=== PATIENT | male | born 1950 | race Caucasian/White ===

== ENCOUNTER 2018-01-19 15:52 | Inpatient (IN) ==
[2018-01-19] MEDS ORDERED: Nitroglycerin 0.4 MG TAB.SUBL SL ONE (16:03)
[2018-01-19] MEDS ORDERED: Ondansetron 4 MG/2 ML VIAL IVP ONE (16:03)
[2018-01-19] MEDS ORDERED: 0.9 % Sodium Chloride 500 ML IVC ONE (16:03)
--- NOTE | 2018-01-19 16:06 | Emergency Department Note ---
Disposition Clinical Impression: Unstable angina, Smoking addiction Emphysema lung Qualifiers: Emphysema type: unspecified Qualified Code(s): J43.9 - Emphysema, unspecified Leukocytosis Qualifiers: Leukocytosis type: unspecified Qualified Code(s): D72.829 - Elevated white blood cell count, unspecified Disposition: Admitted As Inpatient Condition: Good Forms: ED Satisfaction Letter Time of Disposition: 17:54 Chest Pain HPI - General Chief Complaint: ED Chest Pain Stated Complaint: chest pain Time Seen by Provider: 01/19/18 15:54 Source: patient Mode of arrival: ambulatory Limitations: no limitations Vital Signs Reviewed: Yes Nursing Notes Reviewed: Yes - History of Present Illness HPI Narrative: 67-year-old male presents emergency room for chest pain. Started 2 hours ago home while working on a tractor. Pain was substernal radiated to his back. Thought extremely weak and short of breath. His pain has persisted. He rates it as a 3 out of 10. Seems to be worse more in his back than in his chest. Associated with nausea and near vomiting. He does have a history of one stent that was placed a few years back. He said no cardiac evaluations as far as stress test or heart catheterization since then. He has a known smoker and smokes a roughly 1 pack per day. Patient states he does not feel well and feels extremely weak. He denies any cough or sputum production. No fevers. No lower leg swelling. Symptoms seem to be worse with activity. He did not take any nitroglycerin today or aspirin. Severity scale (1-10): 3 - Related Data Allergies Allergy/AdvReac Type Severity Reaction Status Date / Time No Known Allergies Allergy Verified 09/19/17 12:56 All systems ED: reviewed and negative except as stated. Constitutional: Reports: as per HPI, weakness. Denies: fever Eyes: Reports: as per HPI ENT ED: Reports: as per HPI Cardiovascular: Reports: chest pain Respiratory: Reports: as per HPI Gastrointestinal: Reports: as per HPI, nausea, vomiting. Denies: diarrhea Genitourinary: Reports: as per HPI Musculoskeletal: Reports: as per HPI, back pain Integumentary: Reports: as per HPI Neurological: Reports: as per HPI Psychiatric: Reports: as per HPI Endocrine: Reports: as per HPI Hematological/Lymphatic: Reports: as per HPI Chest Pain PMH - Past Medical History Medical history: Reports: coronary artery disease, hyperlipidemia, myocardial infarction Psychiatric history: Reports: no psych history - Social History Smoking Status: Current every day smoker Alcohol use: Reports: none Drug use: Reports: none Physical Exam - General Limitations: no limitations General appearance: alert - Head Head exam: atraumatic, normocephalic - Eye Eye exam: Present: normal appearance - ENT ENT exam: normal exam - Neck Neck exam: Present: normal inspection - Chest Chest inspection: Present: normal inspection, symmetric chest wall rise. Absent : tenderness - Respiratory Respiratory exam: Present: normal lung sounds bilaterally. Absent: respiratory distress, wheezes, stridor - Cardiovascular Cardiovascular exam: Present: normal rhythm, tachycardia - Abdominal Exam Abdominal exam: Present: soft, Non-Tender, normal bowel sounds - Extremities Exam Extremities exam: Present: normal inspection. Absent: tenderness, pedal edema, joint swelling - Expanded Lower Extremity Exam Hip/Pelvis exam: Present: normal inspection - Neurological Exam Neurological exam: Present: alert, oriented X3 - Psychiatric Psychiatric exam: Present: normal affect, normal mood - Skin Skin exam: Present: warm, dry, intact Course Vital Signs Temperature 99.3 F 01/19/18 15:57 Pulse Rate 103 01/19/18 15:57 Respiratory Rate 14 01/19/18 15:57 Blood Pressure 128/84 01/19/18 15:57 O2 Sat by Pulse Oximetry 95 01/19/18 15:57 Temperature 99.3 F 01/19/18 15:57 Pulse Rate 88 01/19/18 17:52 Respiratory Rate 16 01/19/18 17:52 Blood Pressure 113/66 01/19/18 17:52 O2 Sat by Pulse Oximetry 94 01/19/18 17:52 Oxygen Delivery Oxygen Delivery Room Air Chest Pain - MDM Narrative Medical decision making narrative: First troponin was negative. He is chest pain-free now. I have ordered aspirin after his CT scan did not show any evidence of PE or dissection. His vitals are stable. I did give him a liter of fluid after his 500 mL bolus. He will have gotten a total of 1.5 L in the ER. I spoke with the hospitalist. We will admit for ACS evaluation. He does have a nonspecific white count elevation. - Medical Records Medical records reviewed: Yes I reviewed the patient's medical records. - Lab Data Lab results reviewed: Yes I reviewed the patient's lab results. Result diagrams: 01/19/18 16:13 01/19/18 16:13 Lab Results 01/19/18 01/19/18 01/19/18 Range/Units 16:13 16:13 16:13 WBC 18.6 H (4.3-11.1) K/mcL RBC 4.62 (4.19-5.50) M/mcL Hgb 14.2 (12.9-16.9) g/dL Hct 40.4 (37.5-50.1) % MCV 87.4 (83.0-100.0) fL MCH 30.7 (28.0-33.3) pg MCHC 35.1 (31.6-35.5) g/dL RDW 13.6 (11.5-14.5) % Plt Count 252 (140-400) K/mcL MPV 9.4 (9.4-12.4) fL Immature Gran % 0.7 (0-4) % Seg Neutrophils % 84.7 % Lymphocytes % 7.2 % Monocytes % 6.7 % Eosinophils % 0.3 % Basophils % 0.4 % Neutrophils # 15.8 H (1.6-8.9) K/mcL Lymphocytes # 1.3 (0.6-4.6) K/mcL Monocytes # 1.2 (0.0-1.3) K/mcL Eosinophils # 0.1 (0.0-0.6) K/mcL Basophils # 0.1 (0.0-0.2) K/mcL PT 11.5 (9.4-12.1) Seconds INR 1.1 APTT 32.6 (26.0-36.0) Seconds D-Dimer 856 H (0-500) ng/mLFEU Sodium 137 (136-145) mEq/L Potassium 3.3 L (3.5-5.1) mEq/L Chloride 106 (98-107) mEq/L Carbon Dioxide 21 L (23-29) mEq/L BUN 16 (8-23) mg/dL Creatinine 0.91 (0.70-1.30) mg/dL Est GFR ( Amer) > 60 (> 60) Est GFR (Non-Af Amer) > 60 (> 60) BUN/Creatinine Ratio 18 (6-26) Glucose 105 (70-105) mg/dL Calculated Osmolality 286 (280-300) Calcium 9.5 (8.6-10.3) mg/dL Troponin I < 0.03 (< 0.04) ng/mL - Radiology Data Radiology results reviewed: Yes I reviewed the patient's radiology results. - EKG Data EKG attestation: Yes I reviewed and interpreted this EKG. EKG results narrative: EKG shows a rate of 114. Sinus tachycardia. Right axis deviation. IL interval 136. QRS 82. QTC 374. No acute findings of any ischemia. Heart Score - Score History: Moderately Suspicious EKG: Normal Age: Greater than 65 Risk Factors: 1-2 risk factors Troponin: Less than normal limit HEART Score Total: 4
[2018-01-19 16:25] LABS: Basophils # 0.1 K/mcL (0.0-0.2); Basophils % 0.4 %; Eosinophils # 0.1 K/mcL (0.0-0.6); Eosinophils % 0.3 %; Hematocrit 40.4 % (37.5-50.1); Hemoglobin 14.2 g/dL (12.9-16.9); Immature Granulocytes % 0.7 % (0-4); Lymphocytes # 1.3 K/mcL (0.6-4.6); Lymphocytes % 7.2 %; Mean Corpuscular HGB Conc 35.1 g/dL (31.6-35.5); Mean Corpuscular Hemoglobin 30.7 pg (28.0-33.3); Mean Corpuscular Volume 87.4 fL (83.0-100.0); Mean Platelet Volume 9.4 fL (9.4-12.4); Monocytes # 1.2 K/mcL (0.0-1.3); Monocytes % 6.7 %; Neutrophils # 15.8 K/mcL (1.6-8.9); Platelet Count 252 K/mcL (140-400); Red Blood Count 4.62 M/mcL (4.19-5.50); Red Cell Distribution Width 13.6 % (11.5-14.5); Segmented Neutrophils % 84.7 %
[2018-01-19 16:35] LABS: INR 1.1; Prothrombin Time 11.5 Seconds (9.4-12.1)
[2018-01-19 16:37] LABS: Activated Partial Thrombo Time 32.6 Seconds (26.0-36.0)
[2018-01-19] MEDS ORDERED: Isovue-370 500 ML INFUS..BTL IV ONE (16:48)
[2018-01-19 16:53] LABS: BUN/Creatinine Ratio 18 (6-26); Blood Urea Nitrogen 16 mg/dL (8-23); Calcium 9.5 mg/dL (8.6-10.3); Carbon Dioxide 21 mEq/L (23-29); Chloride 106 mEq/L (98-107); Glucose 105 mg/dL (70-105); Osmolality,Calculated 286 (280-300); Potassium 3.3 mEq/L (3.5-5.1); Sodium 137 mEq/L (136-145); eGFR For African Americans > 60 (> 60); eGFR For Non-African Americans > 60 (> 60)
[2018-01-19 16:54] LABS: Troponin I < 0.03 ng/mL (< 0.04)
[2018-01-19] MEDS ORDERED: 0.9 % Sodium Chloride 1,000 ML IVC ONE (17:47)
[2018-01-19] MEDS ORDERED: Aspirin 325 MG TABLET PO ONE (17:47)
[2018-01-19] MEDS ORDERED: Ondansetron 4 MG/2 ML VIAL IVP PRN (18:07)
[2018-01-19] MEDS ORDERED: *HR* Promethazine 25 MG/ML VIAL IVP PRN (18:07)
[2018-01-19] MEDS ORDERED: Acetaminophen 325 MG TABLET PO PRN (18:07)
[2018-01-19] MEDS ORDERED: Naloxone 0.4 MG/ML INJ IVP PRN (18:07)
[2018-01-19] MEDS ORDERED: Nitroglycerin 0.4 MG TAB.SUBL SL PRN (18:09)
--- NOTE | 2018-01-19 18:36 | Internal Med History&Physical ---
Date of Encounter: 01/19/18 Time of Encounter: 18:32 Internal Medicine - H&P: HPI Chief complaint: Generalized body aches Admitted From: Emergency Dept Plans for Post Hospital Care: Home History of present illness: Mr. Smith is a 67 year old male with a known past medical history of CAD status post a stent 2 years ago, and chronic tobacco dependence was brought into the emergency room by family stating that patient has been complaining lightheadedness, dizziness near syncopal and feeling heart when he was working on the tractor couple of hours ago. Apparently patient has been feeling weak and lethargic from last 5 days and he was working under the sun doing a lot of mowing. He does look dehydrated with dry mucous membranes. He is alert, awake and O x 3. Denied any chest pain. He does complain generalized body aches and back pain especially between both shoulder blades. He is very weak and lethargic. Also complained about loss of appetite. He is feeling nauseated but denied any vomitings. Past Med Surg Social Fam HX - Past Medical History Medical history: coronary artery disease, hyperlipidemia, myocardial infarction Psychiatric history: no psych history - Past Surgical History Additional surgical history: cardiac stent x1. bilat inguinal hernia - Social History Smoking Status: Current every day smoker Smokeless Tobacco Status: No Alcohol use: none Drug use: none - Additional Family History Additional family history: Family hsitory reviewed and non contribuitory to current problem. Internal Medicine - H&P: Meds Atorvastatin Calcium 80 mg PO HS 01/19/18 [History] 3 Allergy/AdvReac Type Severity Reaction Status Date / Time No Known Allergies Allergy Verified 01/19/18 18:01 All Systems PM: A 10-system review of systems was performed and is negative for pertinent findings except as documented above in the HPI. Review of systems: All the systems are reviewed everything is benign except the systems and symptoms I mentioned in the history of present illness - Constitutional Vitals: Temp Pulse Resp BP Pulse Ox 99.3 F 88 16 113/66 94 01/19/18 15:57 01/19/18 17:52 01/19/18 17:52 01/19/18 17:52 01/19/18 17:52 General appearance: Present: cooperative, A&O X 3, no acute distress, answers questions appropriately - Head Head exam: Present: atraumatic, normal inspection - Neck Neck exam general surgery: Present: supple - Respiratory Respiratory exam: Present: CTAB. Absent: accessory muscle use, rales, rhonchi, wheezes - Cardiovascular Cardiovascular exam: Present: +S1, +S2, tachycardia. Absent: systolic murmur - GI/Abdominal GI/Abdominal exam: Present: normal bowel sounds, soft. Absent: rebound, rigid, tenderness - Extremities Exam Extremities exam: Absent: calf tenderness, pedal edema, tenderness - Back Exam Back exam: Absent: CVA tenderness (L), CVA tenderness (R) - Neurological Exam Neurological exam: Present: alert, oriented X3 - Psychiatric Psychiatric exam: Present: anxious, depressed - Skin Skin exam: Present: dry. Absent: rash Internal Med - H&P Results - Labs CBC & Chem 7: 01/19/18 16:13 01/19/18 16:13 Labs: Short CBC 01/19/18 Range/Units 16:13 WBC 18.6 H (4.3-11.1) K/mcL Hgb 14.2 (12.9-16.9) g/dL Hct 40.4 (37.5-50.1) % Plt Count 252 (140-400) K/mcL Neutrophils # 15.8 H (1.6-8.9) K/mcL BMP 01/19/18 16:13 Sodium 137 Potassium 3.3 L Chloride 106 Carbon Dioxide 21 L BUN 16 Creatinine 0.91 Glucose 105 Calcium 9.5 Cardiac Enzymes 01/19/18 Range/Units 16:13 Troponin I < 0.03 (< 0.04) ng/mL - Impressions ITS Impressions Chest X-Ray 01/19/18 16:03 IMPRESSION: No acute cardiac or pulmonary disease. D/ / Zac Rasheed MD / Zac Rasheed MD Interpreting Provider: Zac Rasheed MD Chest CTA 01/19/18 16:48 IMPRESSION: No evidence of pulmonary embolism or acute pulmonary abnormality. Moderate to severe emphysema. Tiny amount of mucus or debris in the left mainstem bronchus. D/ / 01/19/2018 17:44:48 Trell Quesada MD / orin Interpreting Provider: Trell Quesada MD - Assessment and plan (1) Heatstroke Current Visit: Yes Status: Acute Assessment and plan: Place the patient on tele for observation his symptoms are more consistent with heatstroke he does look very dehydrated started him on IV hydration will check UA Also ordered CK total - concerning for rhabdo talk to the patient's family at bedside and explained to them about the current care Qualifiers: Encounter type: initial encounter Qualified Code(s): T67.0XXA - Heatstroke and sunstroke, initial encounter (2) SIRS (systemic inflammatory response syndrome) Current Visit: Yes Status: Acute Assessment and plan: Patient does meet SIRS criteria with elevated white count and sinus tachycardia mostly due to heatstroke IV hydration (3) Near syncope Current Visit: Yes Status: Acute Assessment and plan: On tele Reviewed EKG- no acute EKG changes patient denied of any passing out will get a CT of the head with no contrast check serial troponin (4) Dehydration Current Visit: Yes Status: Acute Assessment and plan: IV hydration (5) Tobacco dependence Current Visit: Yes Status: Acute Assessment and plan: Counseled to quit smoking placed on nicotine patch (6) Leukocytosis Current Visit: Yes Status: Acute Assessment and plan: Reactive no source of infection UA is pending Qualifiers: Leukocytosis type: unspecified Qualified Code(s): D72.829 - Elevated white blood cell count, unspecified (7) HLD (hyperlipidemia) Current Visit: Yes Status: Acute Qualifiers: Hyperlipidemia type: unspecified Qualified Code(s): E78.5 - Hyperlipidemia , unspecified (8) CAD (coronary artery disease) Current Visit: Yes Status: Chronic Qualifiers: Coronary Disease-Associated Artery/Lesion type: [place] artery [place] vs. transplanted heart: [place] heart Associated angina: without angina Qualified Code(s): I25.10 - Atherosclerotic heart disease of [place] coronary artery without angina pectoris - Time Spent With Patient Total time spent is greater than 50% in coordination of care (as documented) at patient's floor/unit and/or counseling patient:
[2018-01-19] MEDS: 0.9 % Sodium Chloride 1,000 ML IVC SCH (20:43)
[2018-01-20 04:07] LABS: Bilirubin,Urine Negative (Negative); Blood,Urine Negative (Negative); Clarity,Urine Clear (Clear); Color,Urine Yellow (Yellow); Glucose,Urine (UA) Normal (Normal); Ketones,Urine Trace mg/dL (Negative); Leukocyte Esterase,Urine Trace (Negative); Nitrite,Urine Negative (Negative); PH,Urine 6.5 pH Units (5.0-8.0); Protein,Urine Trace mg/dL (Neg-Trace); Specific Gravity,Urine 1.025 (1.010-1.025); Urobilinogen,Urine Normal (Normal)
[2018-01-20 04:31] LABS: Hyaline Casts,Urine None Seen per lpf (None-Few); Squamous Epithelial Cell,Urine Few per lpf (None-Few)
[2018-01-20 04:32] LABS: Bacteria,Urine None Seen per hpf (None-Few); RBC,Urine 0-3 per hpf (0-3); WBC,Urine 15-30 per hpf (0-3)
[2018-01-20 05:32] LABS: Basophils % 0.4 %; Eosinophils % 0.1 %; Mean Platelet Volume 9.7 fL (9.4-12.4)
[2018-01-20 05:34] LABS: Basophils # 0.1 K/mcL (0.0-0.2); Hematocrit 38.2 % (37.5-50.1); Hemoglobin 13.3 g/dL (12.9-16.9); Immature Granulocytes % 1.5 % (0-4); Lymphocytes # 2.4 K/mcL (0.6-4.6); Lymphocytes % 8.2 %; Mean Corpuscular HGB Conc 34.8 g/dL (31.6-35.5); Mean Corpuscular Hemoglobin 30.6 pg (28.0-33.3); Mean Corpuscular Volume 87.8 fL (83.0-100.0); Monocytes # 2.1 K/mcL (0.0-1.3); Monocytes % 7.3 %; Neutrophils # 24.1 K/mcL (1.6-8.9); Platelet Count 236 K/mcL (140-400); Red Blood Count 4.35 M/mcL (4.19-5.50); Red Cell Distribution Width 13.9 % (11.5-14.5); Segmented Neutrophils % 82.5 %
[2018-01-20 05:50] LABS: Troponin I 0.03 ng/mL (< 0.04)
[2018-01-20 05:55] LABS: Alanine Aminotransferase 21 Units/L (7-52); Albumin 3.6 g/dL (3.5-5.7); Albumin/Globulin Ratio 1.5 (1.1-2.2); Alkaline Phosphatase 62 Units/L (34-104); Aspartate Amino Transferase 26 Units/L (13-39); BUN/Creatinine Ratio 18 (6-26); Bilirubin,Total 1.3 mg/dL (0.3-1.0); Blood Urea Nitrogen 16 mg/dL (8-23); Calcium 8.2 mg/dL (8.6-10.3); Carbon Dioxide 20 mEq/L (23-29); Chloride 110 mEq/L (98-107); Globulin 2.4 g/dL (2.4-3.5); Glucose 105 mg/dL (70-105); Osmolality,Calculated 286 (280-300); Potassium 3.8 mEq/L (3.5-5.1); Sodium 137 mEq/L (136-145); eGFR For African Americans > 60 (> 60); eGFR For Non-African Americans > 60 (> 60)
[2018-01-20 05:59] LABS: BUN/Creatinine Ratio 18 (6-26); Blood Urea Nitrogen 16 mg/dL (8-23); Calcium 8.3 mg/dL (8.6-10.3); Carbon Dioxide 20 mEq/L (23-29); Chloride 110 mEq/L (98-107); Cholesterol 121 mg/dL (< 200); Glucose 104 mg/dL (70-105); HDL Cholesterol 41 mg/dL (40-59); LDL Cholesterol,Calculated 68 mg/dL (0-99); Magnesium 1.8 mg/dL (1.6-2.6); Osmolality,Calculated 285 (280-300); Potassium 3.8 mEq/L (3.5-5.1); Sodium 137 mEq/L (136-145); Triglycerides 59 mg/dL (< 150); eGFR For African Americans > 60 (> 60); eGFR For Non-African Americans > 60 (> 60)
[2018-01-20 06:01] LABS: Platelet Estimate Normal (Normal)
[2018-01-20 06:02] LABS: Reactive Lymphocytes Present (Not Present)
[2018-01-20] MEDS: *HR* HYDROcodone/Acet 5/325 mg TABLET PO PRN ×2 (08:43→16:20)
[2018-01-20] MEDS ORDERED: Ringers Solution, Lactated 500 ML IVC ONE ×2 (09:09→10:00)
--- NOTE | 2018-01-20 09:09 | Internal Med Progress Note ---
Date of Encounter: 01/20/18 Time of Encounter: 09:09 - Assessment and plan (1) Heatstroke Current Visit: Yes Status: Acute Assessment and plan: improving still dehydrated cont IV fluids Qualifiers: Encounter type: subsequent encounter Qualified Code(s): T67.0XXD - Heatstroke and sunstroke, subsequent encounter (2) Dysuria Current Visit: Yes Status: Acute Assessment and plan: considering leukocytosis, which is worsening, temperature 99.7, and now with new dysuria, will start levofloxacin for presumed UTI; will DC if cultures negative cultures pending (3) Leukocytosis Current Visit: Yes Status: Acute Assessment and plan: possibly stress induced, no symptoms of infection except dysuria and no objective evidence of infection except abnormal UA the lower back pain is of unclear etiology and do not have evidence of infection yet, will watch closely Qualifiers: Leukocytosis type: unspecified Qualified Code(s): D72.829 - Elevated white blood cell count, unspecified (4) Near syncope Current Visit: Yes Status: Resolved Assessment and plan: due to dehydration (5) CAD (coronary artery disease) Current Visit: Yes Status: Chronic Assessment and plan: prior tents in 2013 prior angina was dyspnea and not chest pain this evening he had atypical episode of chest pain, did not report at that time , resolved. Troponin negative; doubt ACS, will clinically monitor Qualifiers: Coronary Disease-Associated Artery/Lesion type: [place] artery [place] vs. transplanted heart: [place] heart Associated angina: without angina Qualified Code(s): I25.10 - Atherosclerotic heart disease of [place] coronary artery without angina pectoris (6) Chest pain, atypical Current Visit: Yes Status: Acute Assessment and plan: ACS ruled out PE ruled out by CTA monitor (7) Hypotension Current Visit: Yes Status: Acute Assessment and plan: hypotension this morning was likely due to dehydration, improved over the course of the day with IVF and bolus no suggestion of aortic dissection on CTA despite back pain, chest pain and hypotension Qualifiers: Hypotension type: unspecified hypotension type Qualified Code(s): I95.9 - Hypotension, unspecified (8) Constipation Current Visit: Yes Status: Acute Assessment and plan: bowel regimen Qualifiers: Constipation type: unspecified constipation type Qualified Code(s): K59.00 - Constipation, unspecified - Time Spent With Patient Total time spent is greater than 50% in coordination of care (as documented) at patient's floor/unit and/or counseling patient: - Subjective Interval history: Had episode of back pain today, lower back, at coccyx; new pain dysuria, small amount of urine output Left shoulder numbness and tingling for months Vomiting yesterday Constipated, small BM this morning No cough, sputum - Constitutional Vitals: Temp Pulse Resp BP Pulse Ox 98.9 F 72 16 120/73 95 01/20/18 08:10 01/20/18 08:10 01/20/18 08:10 01/20/18 08:10 01/20/18 08:10 General appearance: Present: cooperative, mild distress (feeling cold and in blankets), A&O X 3, answers questions appropriately - Head Head exam: Present: atraumatic, normocephalic - Eye Eye exam: Present: PERRL, conjuntiva pink, sclera anicteric Pupils: Present: PERRL (no photophobia) - Neck Neck exam general surgery: Present: supple, trachea midline. Absent: nuchal rigidity - Respiratory Respiratory exam: Present: CTAB. Absent: accessory muscle use, rales, rhonchi, wheezes - Cardiovascular Cardiovascular exam: Present: RRR, +S1, +S2. Absent: diastolic murmur, gallop, rubs, systolic murmur - GI/Abdominal GI/Abdominal exam: Present: normal bowel sounds, soft, no peritoneal signs. Absent: distended, guarding, rebound, rigid, tenderness - Extremities Exam Extremities exam: Present: warm, radial pulses palpable and symmetrical. Absent : calf tenderness, cyanotic, pedal edema - Back Exam Back exam: Present: normal inspection. Absent: CVA tenderness (L), CVA tenderness (R), muscle spasm, paraspinal tenderness, rash noted, tenderness, vertebral tenderness ([place] psinal tenderness even at the site of coccygeal level bilateral hip pain) - Neurological Exam Neurological exam: Present: CN II-XII intact, oriented X3, no focal deficits. Absent: pronater drift, facial droop, speech deficit - Skin Skin exam: Present: dry, intact Internal Medicine: Result - Labs CBC & Chem 7: 01/20/18 04:40 01/20/18 04:40 Labs: Short CBC 01/20/18 Range/Units 04:40 WBC 29.2 H D (4.3-11.1) K/mcL Hgb 13.3 (12.9-16.9) g/dL Hct 38.2 (37.5-50.1) % Plt Count 236 (140-400) K/mcL Neutrophils # 24.1 H (1.6-8.9) K/mcL BMP 01/20/18 01/20/18 04:40 04:40 Sodium 137 137 Potassium 3.8 3.8 Chloride 110 H 110 H Carbon Dioxide 20 L 20 L BUN 16 16 Creatinine 0.87 0.88 Glucose 104 105 Calcium 8.3 L 8.2 L Cardiac Enzymes 01/19/18 01/20/18 Range/Units 21:42 04:40 Troponin I < 0.03 0.03 (< 0.04) ng/mL Liver Function 01/20/18 Range/Units 04:40 Total Bilirubin 1.3 H (0.3-1.0) mg/dL AST 26 (13-39) Units/L ALT 21 (7-52) Units/L Alkaline Phosphatase 62 (34-104) Units/L Albumin 3.6 (3.5-5.7) g/dL Urine 01/20/18 Range/Units 03:48 Urine Color Yellow (Yellow) Urine Clarity Clear (Clear) Urine pH 6.5 (5.0-8.0) pH Units Ur Specific [place] 1.025 (1.010-1.025) Urine Protein Trace (Neg-Trace) mg/dL Urine Glucose (UA) Normal (Normal) mg/dL - ABG Interpretation ABG results: PT/INR, D-dimer PT 11.5 Seconds (9.4-12.1) 01/19/18 16:13 D-Dimer 856 ng/mLFEU (0-500) H 01/19/18 16:13 Consult Discharge Plan - Plan Referrals: NONE,PCP [Primary Care Provider] -
[2018-01-20] MEDS: 0.9 % Sodium Chloride 1,000 ML IVC SCH ×2 (09:44→14:27)
[2018-01-20] MEDS: Aspirin Enteric Coated 81 MG Tablet PO SCH (10:13)
[2018-01-20] MEDS: Nicotine 21 MG PATCH.TD24 TD SCH (10:13)
[2018-01-20] MEDS: levoFLOXacin 750 MG TABLET PO SCH (10:13)
[2018-01-20] MEDS: Ringers Solution, Lactated 1,000 ML IVC SCH ×2 (10:25→17:46)
[2018-01-20] MEDS ORDERED: Bisacodyl 10 MG RECTAL SUPPOSITORY RC PRN (17:18)
[2018-01-20] MEDS: Sennosides/Docusate Sodium TABLET PO SCH (19:27)
[2018-01-20] MEDS: *HR* Heparin 5,000 UNIT/ML VIAL SQ SCH (20:27)
[2018-01-21] MEDS: *HR* HYDROcodone/Acet 5/325 mg TABLET PO PRN ×2 (02:21→19:57)
[2018-01-21 04:18] LABS: Hemoglobin 12.2 g/dL (12.9-16.9)
[2018-01-21 04:20] LABS: Hematocrit 35.4 % (37.5-50.1); Mean Corpuscular HGB Conc 34.5 g/dL (31.6-35.5); Mean Corpuscular Hemoglobin 30.6 pg (28.0-33.3); Mean Corpuscular Volume 88.7 fL (83.0-100.0); Mean Platelet Volume 9.9 fL (9.4-12.4); Platelet Count 205 K/mcL (140-400); Red Blood Count 3.99 M/mcL (4.19-5.50)
[2018-01-21 04:40] LABS: Alanine Aminotransferase 18 Units/L (7-52); Albumin 3.1 g/dL (3.5-5.7); Albumin/Globulin Ratio 1.3 (1.1-2.2); Alkaline Phosphatase 65 Units/L (34-104); Aspartate Amino Transferase 21 Units/L (13-39); BUN/Creatinine Ratio 23 (6-26); Bilirubin,Total 1.2 mg/dL (0.3-1.0); Blood Urea Nitrogen 17 mg/dL (8-23); Carbon Dioxide 23 mEq/L (23-29); Chloride 107 mEq/L (98-107); Globulin 2.3 g/dL (2.4-3.5); Glucose 107 mg/dL (70-105); Magnesium 1.8 mg/dL (1.6-2.6); Osmolality,Calculated 282 (280-300); Potassium 3.7 mEq/L (3.5-5.1); Sodium 135 mEq/L (136-145); Total Protein 5.4 g/dL (6.4-8.9); eGFR For African Americans > 60 (> 60); eGFR For Non-African Americans > 60 (> 60)
[2018-01-21 04:44] LABS: Eosinophils # 0.6 K/mcL (0.0-0.6); Lymphocytes # 3.7 K/mcL (0.6-4.6); Monocytes # 2.5 K/mcL (0.0-1.3); Neutrophils # 23.6 K/mcL (1.6-8.9)
[2018-01-21 04:45] LABS: Platelet Estimate Normal (Normal)
[2018-01-21] MEDS: Ringers Solution, Lactated 1,000 ML IVC SCH ×3 (04:49→21:49)
[2018-01-21] MEDS: *HR* Heparin 5,000 UNIT/ML VIAL SQ SCH ×3 (04:52→21:57)
[2018-01-21] MEDS: levoFLOXacin 750 MG TABLET PO SCH (08:16)
[2018-01-21] MEDS: Nicotine 21 MG PATCH.TD24 TD SCH ×2 (08:16→19:52)
[2018-01-21] MEDS: Aspirin Enteric Coated 81 MG Tablet PO SCH (08:16)
[2018-01-21] MEDS: Sennosides/Docusate Sodium TABLET PO SCH ×2 (08:16→19:50)
--- NOTE | 2018-01-21 18:07 | Internal Med Progress Note ---
Date of Encounter: 01/21/18 Time of Encounter: 17:28 - Assessment and plan (1) Leukocytosis Current Visit: Yes Status: Acute Assessment and plan: initialy thought to be stress induced due to heat stroke, though he had some dysuria, low grade fever and abnormal UA, presumed UTI. That being said, the degree of leukocytosis could not be explained by mere cystitis as he had no flank tenderness or high grade fever suggesting pyelonephritis on Harrison's punch. With his coccygeal level lower back pain, I suspected prostatitis, though he had n prostate tenderness on rectal exam. No clear cellulitis, pneumonia, meningitis. Also had tick bite few weeks ago. Considering leukocytoiss with bandemia and left shift, I suspect this is due to UTI with possible cystitis. Even though his WBC count appear to be worsening on oral quinolone from 01/20 to 01/21 due to red highlight in meditech, it is practically unchanged, and he is clinically feeling better, no longer having low grade fevers or feeling extremely cold, so I will not change Abx to IV at this time. BP has improved, no shock. - U Cx pending - Cont oral quinolone; check EKG for QTc monitoring - If fails to improve, consider additional imaging based on clinical evaluation , probably best to start with CT pelvis/abd with lower spine; may need tagged WBC scan if unclear source of persistent leukocytosis - consult ID due to unclear picture, history of tick bite and now mild monocytosis - If develops shock, broaden to IV Abx broad spectrum empirically - If febrile, check blood cultures Qualifiers: Leukocytosis type: unspecified Qualified Code(s): D72.829 - Elevated white blood cell count, unspecified (2) Heatstroke Current Visit: Yes Status: Acute Assessment and plan: resolved, DC IVF encourage oral fluids Qualifiers: Encounter type: subsequent encounter Qualified Code(s): T67.0XXD - Heatstroke and sunstroke, subsequent encounter (3) Near syncope Current Visit: Yes Status: Resolved Assessment and plan: due to dehydration (4) CAD (coronary artery disease) Current Visit: Yes Status: Chronic Assessment and plan: prior tents in 2013 prior angina was dyspnea and not chest pain this evening he had atypical episode of chest pain, did not report at that time , resolved. Troponin negative; doubt ACS, will clinically monitor Qualifiers: Coronary Disease-Associated Artery/Lesion type: [place] artery [place] vs. transplanted heart: [place] heart Associated angina: without angina Qualified Code(s): I25.10 - Atherosclerotic heart disease of [place] coronary artery without angina pectoris (5) Chest pain, atypical Current Visit: Yes Status: Acute Assessment and plan: ACS ruled out, chest pain resolved PE ruled out by CTA monitor (6) Hypotension Current Visit: Yes Status: Acute Assessment and plan: hypotension on admission was likely due to dehydration, which improved with IVF and bolus no suggestion of aortic dissection on CTA despite back pain, chest pain and hypotension Qualifiers: Hypotension type: unspecified hypotension type Qualified Code(s): I95.9 - Hypotension, unspecified (7) Constipation Current Visit: Yes Status: Acute Assessment and plan: bowel regimen Qualifiers: Constipation type: unspecified constipation type Qualified Code(s): K59.00 - Constipation, unspecified - Time Spent With Patient Total time spent is greater than 50% in coordination of care (as documented) at patient's floor/unit and/or counseling patient: - Subjective Interval history: Lower back pain at level of coccyx bilaterally has resolved Sweating and chills without rigors, felt cold this morning Dysuria improving Some headache Vomiting x 5 and burping yesterday Left shoulder numbness and tingling for months No cough, sputum No new rash Reports tick bite 3 weeks ago, right shoulder - Constitutional Vitals: Temp Pulse Resp BP Pulse Ox 98.3 F 89 17 105/69 95 01/21/18 16:17 01/21/18 16:17 01/21/18 16:17 01/21/18 16:17 01/21/18 16:17 General appearance: Present: cooperative, A&O X 3, no acute distress, answers questions appropriately - Head Head exam: Present: atraumatic, normocephalic - Eye Eye exam: Present: PERRL, conjuntiva pink, sclera anicteric Pupils: Present: PERRL - ENT ENT exam: Present: mucous membranes moist - Neck Neck exam general surgery: Present: supple, trachea midline. Absent: nuchal rigidity - Respiratory Respiratory exam: Present: CTAB. Absent: accessory muscle use, rales, rhonchi, wheezes - Cardiovascular Cardiovascular exam: Present: RRR, +S1, +S2. Absent: diastolic murmur, gallop, rubs, systolic murmur - GI/Abdominal GI/Abdominal exam: Present: normal bowel sounds, soft, no peritoneal signs. Absent: distended, guarding, rebound, tenderness Additional comments: Rectal exam without prostate bogginess or tenderness - Extremities Exam Extremities exam: Present: warm, radial pulses palpable and symmetrical. Absent : calf tenderness, cyanotic, pedal edema - Neurological Exam Neurological exam: Present: CN II-XII intact, oriented X3, no focal deficits. Absent: pronater drift, facial droop, speech deficit - Skin Skin exam: Present: dry, intact Additional comments: right shoulder tick bite [place] Internal Medicine: Result - Labs CBC & Chem 7: 01/21/18 03:32 01/21/18 03:32 Labs: Short CBC 01/21/18 Range/Units 03:32 WBC 31.1 H* (4.3-11.1) K/mcL Hgb 12.2 L (12.9-16.9) g/dL Hct 35.4 L (37.5-50.1) % Plt Count 205 (140-400) K/mcL Neutrophils # 23.6 H (1.6-8.9) K/mcL BMP 01/21/18 03:32 Sodium 135 L Potassium 3.7 Chloride 107 Carbon Dioxide 23 BUN 17 Creatinine 0.75 Glucose 107 H Calcium 8.0 L Liver Function 01/21/18 Range/Units 03:32 Total Bilirubin 1.2 H (0.3-1.0) mg/dL AST 21 (13-39) Units/L ALT 18 (7-52) Units/L Alkaline Phosphatase 65 (34-104) Units/L Albumin 3.1 L (3.5-5.7) g/dL - ABG Interpretation ABG results: PT/INR, D-dimer PT 11.5 Seconds (9.4-12.1) 01/19/18 16:13 D-Dimer 856 ng/mLFEU (0-500) H 01/19/18 16:13 Consult Discharge Plan - Plan Referrals: NONE,PCP [Primary Care Provider] -
[2018-01-22] MEDS: Melatonin 3 MG TABLET PO PRN (03:24)
[2018-01-22 04:45] LABS: Basophils # 0.1 K/mcL (0.0-0.2); Basophils % 0.4 %; Eosinophils # 0.2 K/mcL (0.0-0.6); Eosinophils % 0.8 %; Hematocrit 36.9 % (37.5-50.1); Hemoglobin 12.9 g/dL (12.9-16.9); Immature Granulocytes % 1.8 % (0-4); Lymphocytes % 12.3 %; Mean Corpuscular Hemoglobin 30.6 pg (28.0-33.3); Mean Corpuscular Volume 87.6 fL (83.0-100.0); Mean Platelet Volume 9.7 fL (9.4-12.4); Monocytes # 1.4 K/mcL (0.0-1.3); Monocytes % 5.6 %; Neutrophils # 19.6 K/mcL (1.6-8.9); Platelet Count 225 K/mcL (140-400); Red Blood Count 4.21 M/mcL (4.19-5.50); Segmented Neutrophils % 79.1 %
[2018-01-22 05:05] LABS: BUN/Creatinine Ratio 20 (6-26); Blood Urea Nitrogen 13 mg/dL (8-23); Carbon Dioxide 21 mEq/L (23-29); Chloride 109 mEq/L (98-107); Glucose 95 mg/dL (70-105); Magnesium 1.8 mg/dL (1.6-2.6); Osmolality,Calculated 284 (280-300); Potassium 3.5 mEq/L (3.5-5.1); Sodium 137 mEq/L (136-145); eGFR For African Americans > 60 (> 60); eGFR For Non-African Americans > 60 (> 60)
[2018-01-22] MEDS: *HR* Heparin 5,000 UNIT/ML VIAL SQ SCH ×3 (05:09→20:00)
--- NOTE | 2018-01-22 07:56 | Electrocardiograph Report ---
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
[2018-01-22] MEDS: levoFLOXacin 500 MG TABLET PO SCH (08:38)
[2018-01-22] MEDS: Aspirin Enteric Coated 81 MG Tablet PO SCH (08:39)
[2018-01-22] MEDS: Nicotine 21 MG PATCH.TD24 TD SCH (08:39)
[2018-01-22] MEDS: Sennosides/Docusate Sodium TABLET PO SCH ×2 (08:39→19:59)
--- NOTE | 2018-01-22 10:34 | Infectious Disease Consult ---
Date of Encounter: 01/22/18 Time of Encounter: 10:25 Assessment and Plan (1) Sepsis Status: Acute Assessment and plan: Patient presented with 2/4 SIRS criteria with leukocytosis and tachycardia Source and causative agent is unclear but possibly urinary Will obtain ESR/CRP along with procalcitonin He is still meeting 2/4 SIRS criteria with persistent leukocytosis and tachycardia Will repeat UA and obtain first set of blood cultures despite being on Levaquin , day 4 Qualifiers: Sepsis type: sepsis due to unspecified organism Qualified Code(s): A41.9 - Sepsis, unspecified organism (2) UTI (urinary tract infection) Status: Acute Assessment and plan: Initial UA positive for trace leukocyte esterase but culture was grossly mixed Causative organism unknown Obtain repeat UA and first set of blood cultures ESR/CRP/procalcitonin as above Continue Levaquin for now, day 4 Duration will be based on clinical picture Recommend obtaining PSA levels to evaluate for prostatitis Qualifiers: Urinary tract infection type: site unspecified Hematuria presence: without hematuria Qualified Code(s): N39.0 - Urinary tract infection, site not specified (3) Leukocytosis Status: Acute Assessment and plan: White count decreased today from 24.7 from maximum of 31.1 yesterday Patient confirms he did not take any steroids Recommend obtaining peripheral smear for further evaluation Qualifiers: Leukocytosis type: unspecified Qualified Code(s): D72.829 - Elevated white blood cell count, unspecified (4) Tick bite of deltoid region Status: Acute Assessment and plan: Tick bite sustained about 3 weeks ago in right shoulder He is not exhibiting systemic signs of tick-borne illness - absence of leukopenia, thombocytopenia Lesion does not appear to be suspicious for erythema migrans Does not warrant further workup at this time Qualifiers: Encounter type: initial encounter Laterality: right Qualified Code(s): S40.261A - Insect bite (nonvenomous) of right shoulder, initial encounter; W57.XXXA - Bitten or stung by nonvenomous insect and other nonvenomous arthropods, initial encounter (5) Back pain Status: Acute Assessment and plan: Back pain started just prior to admission Cannot rule out if caused by osteomyelitis Recommend obtaining CT lumbar spine for further evaluation Qualifiers: Back pain location: low back pain Chronicity: acute Back pain laterality : bilateral Sciatica presence: without sciatica Qualified Code(s): M54.5 - Low back pain (6) Emphysema lung Status: Chronic Qualifiers: Emphysema type: unspecified Qualified Code(s): J43.9 - Emphysema, unspecified (7) HLD (hyperlipidemia) Status: Acute Qualifiers: Hyperlipidemia type: unspecified Qualified Code(s): E78.5 - Hyperlipidemia , unspecified (8) CAD (coronary artery disease) Status: Chronic Qualifiers: Coronary Disease-Associated Artery/Lesion type: [place] artery [place] vs. transplanted heart: hoh heart Associated angina: without angina Qualified Code(s): I25.10 - Atherosclerotic heart disease of [place] coronary artery without angina pectoris Infectious Disease HPI - Data of Consult Patient: new to practice Requesting Physician: Esperanza Song Primary Care Provider: PCP NONE - Consult Narrative Reason for consult: leukocytosis, recent tick bite, possible UTI History of present illness: Mr. Smith is a 67 year old male with past medical history of coronary artery disease status post stents 4 years ago, hyperlipidemia, tobacco abuse who was admitted on January 19 for pre-syncope due to suspected heatstroke. We are being consulted for leukocytosis in setting of recent tick bite and possible UTI. Patient is a 67-year-old male with medical history as stated above. He states that a week prior to admission, he was recently outdoors working on his yard and golfing. He described having lower extremity weakness and almost passed out. He also admitted to having a subjective fever, chills, sweating and has some burning with urination the day prior to admission. When he presented to the ER, he had a temperature of 99.3 and was tachycardic at 103. His initial white count was 18. Urinalysis did reveal trace leukocyte esterase with 15-30 white blood count, and urine culture was grossly mixed. Chest and head CT were unremarkable for infection. On day 2 of hospital admission, patient developed worsening dysuria and increased leukocytosis up to 29,000 with high monocyte count of 2.1 and he was started on by mouth Levaquin. On day 3, his white count did increase more to 31.1 with 10% bands. He endorses episodes nausea, vomiting and has sweats/chills during the previous several days. After further questioning, patient did reveal that he had a tick bite on his right shoulder roughly 3 weeks ago. He denied having any concerning symptoms after the bite other than mild pain at the area. Regarding previous infections , patient states that he did have pneumonia as a child and also had a possible UTI 2-3 years ago, but is otherwise normally healthy. He admits to drinking large amounts of milk every day. 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 During today's exam, patient states that he still has burning with urination and has incomplete voiding. Also complains of low back pain that started within the week. He did state he had a prostate exam yesterday and that was normal. He denies any chest pain, shortness of breath, diarrhea. He denies recent travel or sick contacts. CC: Esperanza Song Past Med Surg Social Fam HX - Past Medical History Medical history: coronary artery disease, hyperlipidemia, myocardial infarction Psychiatric history: no psych history - Past Surgical History Additional surgical history: cardiac stent x1. bilat inguinal hernia. Rotator Cuff - Social History Smoking Status: Current every day smoker Packs per day: 2 Smokeless Tobacco Status: No Alcohol use: none Drug use: none - Family History Mother Hx Family Endocrine Disorder: Yes (DM) Father Living Status: Infectious Disease-CN:Meds Atorvastatin Calcium 80 mg PO HS 01/19/18 [History] 3 Allergy/AdvReac Type Severity Reaction Status Date / Time No Known Allergies Allergy Verified 01/19/18 18:01 - Constitutional Constitutional: Present: chills, fatigue, fever(s), lethargy, malaise, weakness - Cardiovascular Cardiovascular: Present: lightheadedness. Absent: chest pain, dyspnea, pedal edema, syncope - Respiratory Respiratory: Absent: cough, hemoptysis, dyspnea on exertion, wheezing, excessive phlegm production - Gastrointestinal Gastrointestinal: Present: nausea, vomiting. Absent: diarrhea, dysphagia, melena - Genitourinary Genitourinary: difficulty urinating, dysuria, urinary frequency - Musculoskeletal Musculoskeletal: Present: back pain, muscle weakness. Absent: numbness Exam - Constitutional Vitals: Temp Pulse Resp BP Pulse Ox 97.7 F 76 16 157/87 98 01/22/18 06:59 01/22/18 06:59 01/22/18 06:59 01/22/18 06:59 01/22/18 06:59 General appearance: cooperative, no acute distress - Head Head exam: Present: atraumatic, normocephalic - Respiratory Respiratory exam: Present: CTAB. Absent: accessory muscle use, rales, stridor, tachypnea - Cardiovascular Cardiovascular exam: Present: RRR. Absent: bradycardia, diastolic murmur, irregular rhythm, systolic murmur, tachycardia - GI/Abdominal GI/Abdominal exam: Present: normal bowel sounds, soft. Absent: tenderness - Extremities Exam Extremities exam: Present: normal inspection. Absent: pedal edema - Skin Additional comments: tick bite noted in right shoulder Infectious Disease CN: Results - Labs CBC & Chem 7: 01/22/18 04:00 01/22/18 04:00 Cultures: Cultures 01/20/18 03:48 Urine Culture - Final Urine,Clean Catch Culture is grossly mixed, unable to properly interpret. Please repeat if indicated. Serology: Serology 01/20/18 Range/Units 03:48 Urine Color Yellow (Yellow) Urine Clarity Clear (Clear) Urine pH 6.5 (5.0-8.0) pH Units Ur Specific [place] 1.025 (1.010-1.025) Urine Protein Trace (Neg-Trace) mg/dL Urine Glucose (UA) Normal (Normal) mg/dL Urine Ketones Trace H (Negative) mg/dL Urine Blood Negative (Negative) Urine Nitrite Negative (Negative) Urine Bilirubin Negative (Negative) Urine Urobilinogen Normal (Normal) mg/dL Ur Leukocyte Esterase Trace H (Negative) Urine Microscopic RBC 0-3 (0-3) per hpf Urine Microscopic WBC 15-30 H (0-3) per hpf Ur Squamous Epith Cells Few (None-Few) per lpf Urine Bacteria None Seen (None-Few) per hpf Hyaline Casts None Seen (None-Few) per lpf Ur Culture Indicated? YES A (NO) Consult Discharge Plan - Plan Referrals: NONE,PCP [Primary Care Provider] - - Attending Attestation I examined this patient and my medical decision-making was reviewed with the Resident Physician. I agree with the documented findings, disposition and treatment plan as described except to the extent set forth below. This is an addendum to original report dictated by resident physician. Please refer to the residents note for full detail. Patient is 67-year-old gentleman with past medical history mentioned below including lower back pain and urinary symptoms came into the hospital for suspected heatstroke because of lower extremity weakness and near syncopal episode episode. On arrival patient was noted to be septic MAXIMUM TEMPERATURE of 99.3. Patient had a CT head and CT of the chest both of which showed no acute process. Patient apparently had a tick bite on the right shoulder 3-4 weeks ago as well. Patient denies any headache no visual changes no neck stiffness no signs of meningitis patient denies any rash or joint pain or arthralgias. Patient also denies any URI symptoms no runny nose or sore throat no cough no sputum production no earache. Labs revealed no thrombocytopenia no leukopenia and no elevated LFTs. Patient has impressively elevated white blood cell count about 30,000 and has bands. Assessment and plan: Sepsis UTI Leukocytosis Recent tick bite Back pain that is acute Severe emphysema patient not taking any inhalers Recommendations: At this point I really do not know was causing the patients sepsis. I do not have an obvious focus of infection. The urine is on my differential, possible prostatitis was also on the differential. Patients acute lower back pain is also making me concerned. At this point we will order baseline labs including inflammatory markers, blood cultures, repeat urine culture, peripheral smear and procalcitonin level. Also check PSA level. Get a CT of the lower back I do not believe that the tick bite has anything to do with his symptoms. Is not presenting with typical clinical presentation. Continue levofloxacin for now.
--- NOTE | 2018-01-22 11:25 | Internal Med Progress Note ---
Date of Encounter: 01/22/18 Time of Encounter: 11:00 - Assessment and plan (1) Leukocytosis Current Visit: Yes Status: Acute Assessment and plan: Urinalysis suggestive of infection but urine culture polymicrobial. Unlikely to obtain species from urine culture. Other issues to consider is tick bite. Plan - Continue Levaquin. Will likely need prolonged course of antibiotics for UTI/ prostatitis. - Awaiting infectious disease input Qualifiers: Leukocytosis type: unspecified Qualified Code(s): D72.829 - Elevated white blood cell count, unspecified (2) Heatstroke Current Visit: Yes Status: Acute Assessment and plan: Adequately resuscitated with intravenous fluids. Encourage oral hydration. Qualifiers: Encounter type: subsequent encounter Qualified Code(s): T67.0XXD - Heatstroke and sunstroke, subsequent encounter (3) Dehydration Current Visit: Yes Status: Acute Assessment and plan: Encourage oral hydration (4) Tobacco dependence Current Visit: Yes Status: Acute Assessment and plan: Conservation quit smoking. He does not see a family physician outpatient. He will benefit from pulmonary function testing after discharge. Discussed with patient in detail. He is aware we noted emphysema on CT chest. (5) Near syncope Current Visit: Yes Status: Resolved Assessment and plan: Likely related to dehydration. CT head negative. EKG shows no ST-T wave changes. Troponin I is negative. PE was ruled out on admission. (6) SIRS (systemic inflammatory response syndrome) Current Visit: Yes Status: Acute Assessment and plan: Patient does meet SIRS criteria with elevated white count and sinus tachycardia mostly due to heatstroke, rule out infection (7) HLD (hyperlipidemia) Current Visit: Yes Status: Acute Qualifiers: Hyperlipidemia type: unspecified Qualified Code(s): E78.5 - Hyperlipidemia , unspecified (8) CAD (coronary artery disease) Current Visit: Yes Status: Chronic Qualifiers: Coronary Disease-Associated Artery/Lesion type: [place] artery [place] vs. transplanted heart: [place] heart Associated angina: without angina Qualified Code(s): I25.10 - Atherosclerotic heart disease of [place] coronary artery without angina pectoris - Time Spent With Patient Total time spent is greater than 50% in coordination of care (as documented) at patient's floor/unit and/or counseling patient: 25 - 35 minutes - Subjective Interval history: Feeling better now, denies dizziness. No events overnight. - Constitutional Vitals: Temp Pulse Resp BP Pulse Ox 97.7 F 76 16 157/87 98 01/22/18 06:59 01/22/18 06:59 01/22/18 06:59 01/22/18 06:59 01/22/18 06:59 General appearance: Present: cooperative, A&O X 3, no acute distress, answers questions appropriately Exam: Physical exam Gen: Comfortable, laying in bed, in no visible distress HEENT: Normocephalic, atraumatic. No conjunctival icterus. Moist oral mucosa. Neck: Supple Lungs: Clear to auscultation, no foreign sounds, markedly diminished to auscultation Heart: Distant S1-S2, no murmurs rubs or gallops Abdomen: Normoactive bowel sounds, no guarding rigidity or tenderness Extremities: No edema clubbing or cyanosis Neuro: Alert oriented 3, no focal deficits Skin: No skin lesions Internal Medicine: Result - Labs CBC & Chem 7: 01/22/18 04:00 01/22/18 04:00 Labs: Short CBC 01/22/18 Range/Units 04:00 WBC 24.7 H (4.3-11.1) K/mcL Hgb 12.9 (12.9-16.9) g/dL Hct 36.9 L (37.5-50.1) % Plt Count 225 (140-400) K/mcL Neutrophils # 19.6 H (1.6-8.9) K/mcL BMP 01/22/18 04:00 Sodium 137 Potassium 3.5 Chloride 109 H Carbon Dioxide 21 L BUN 13 Creatinine 0.65 L Glucose 95 Calcium 8.0 L - ABG Interpretation ABG results: PT/INR, D-dimer PT 11.5 Seconds (9.4-12.1) 01/19/18 16:13 D-Dimer 856 ng/mLFEU (0-500) H 01/19/18 16:13 Consult Discharge Plan - Plan Referrals: NONE,PCP [Primary Care Provider] -
[2018-01-22 16:00] LABS: Bilirubin,Urine Negative (Negative); Blood,Urine Trace (Negative); Clarity,Urine Clear (Clear); Color,Urine Yellow (Yellow); Glucose,Urine (UA) 100 mg/dL (Normal); Ketones,Urine Negative (Negative); Leukocyte Esterase,Urine Small (Negative); Nitrite,Urine Negative (Negative); PH,Urine 7.5 pH Units (5.0-8.0); Protein,Urine Negative (Neg-Trace); Specific Gravity,Urine 1.013 (1.010-1.025); Urobilinogen,Urine Normal (Normal)
[2018-01-22 16:02] LABS: Bacteria,Urine None Seen per hpf (None-Few); Hyaline Casts,Urine None Seen per lpf (None-Few); Squamous Epithelial Cell,Urine Moderate per lpf (None-Few); WBC,Urine 15-30 per hpf (0-3)
[2018-01-23] MEDS: Melatonin 3 MG TABLET PO PRN (02:59)
[2018-01-23] MEDS: *HR* Heparin 5,000 UNIT/ML VIAL SQ SCH (05:16)
[2018-01-23] MEDS: Nicotine 21 MG PATCH.TD24 TD SCH (08:18)
[2018-01-23] MEDS: levoFLOXacin 500 MG TABLET PO SCH (08:20)
[2018-01-23] MEDS: Sennosides/Docusate Sodium TABLET PO SCH (08:20)
[2018-01-23] MEDS: Aspirin Enteric Coated 81 MG Tablet PO SCH (08:20)
[2018-01-23 08:45] LABS: Basophils # 0.1 K/mcL (0.0-0.2); Basophils % 0.7 %; Eosinophils # 0.2 K/mcL (0.0-0.6); Eosinophils % 1.9 %; Hematocrit 37.9 % (37.5-50.1); Hemoglobin 13.8 g/dL (12.9-16.9); Immature Granulocytes % 0.3 % (0-4); Lymphocytes # 2.7 K/mcL (0.6-4.6); Lymphocytes % 23.5 %; Mean Corpuscular HGB Conc 36.4 g/dL (31.6-35.5); Mean Corpuscular Hemoglobin 31.5 pg (28.0-33.3); Mean Corpuscular Volume 86.5 fL (83.0-100.0); Mean Platelet Volume 9.3 fL (9.4-12.4); Monocytes # 0.9 K/mcL (0.0-1.3); Monocytes % 7.9 %; Neutrophils # 7.5 K/mcL (1.6-8.9); Platelet Count 268 K/mcL (140-400); Red Blood Count 4.38 M/mcL (4.19-5.50); Red Cell Distribution Width 13.7 % (11.5-14.5); Segmented Neutrophils % 65.7 %
[2018-01-23 09:06] LABS: BUN/Creatinine Ratio 15 (6-26); Blood Urea Nitrogen 10 mg/dL (8-23); Calcium 8.7 mg/dL (8.6-10.3); Carbon Dioxide 18 mEq/L (23-29); Chloride 111 mEq/L (98-107); Glucose 101 mg/dL (70-105); Osmolality,Calculated 285 (280-300); Potassium 3.6 mEq/L (3.5-5.1); Sodium 138 mEq/L (136-145); eGFR For African Americans > 60 (> 60); eGFR For Non-African Americans > 60 (> 60)
[2018-01-23 12:02] VITALS: BP 151/81
--- NOTE | 2018-01-23 12:19 | Discharge Summary ---
- NOTES TO OUTPATIENT PROVIDER Notes to Outpatient Provider: Establish care with a primary care provider Date of Encounter: 01/23/18 Time of Encounter: 12:15 - Discharge Diagnosis (1) Leukocytosis Priority: Primary Status: Acute Assessment and Plan: Urinalysis suggestive of infection but urine culture polymicrobial. Unlikely to obtain species from urine culture. Plan - Finish 4 weeks course of antibiotics. Qualifiers: Leukocytosis type: unspecified Qualified Code(s): D72.829 - Elevated white blood cell count, unspecified (2) Heatstroke Priority: Primary Status: Resolved Assessment and Plan: Adequately resuscitated with intravenous fluids. Encourage oral hydration. Qualifiers: Encounter type: subsequent encounter Qualified Code(s): T67.0XXD - Heatstroke and sunstroke, subsequent encounter (3) Dehydration Priority: Primary Status: Resolved (4) Tobacco dependence Priority: Secondary Status: Acute (5) Near syncope Priority: Secondary Status: Resolved (6) SIRS (systemic inflammatory response syndrome) Priority: Primary Status: Resolved (7) HLD (hyperlipidemia) Priority: Secondary Status: Acute Qualifiers: Hyperlipidemia type: unspecified Qualified Code(s): E78.5 - Hyperlipidemia , unspecified (8) CAD (coronary artery disease) Priority: Secondary Status: Chronic Qualifiers: Coronary Disease-Associated Artery/Lesion type: [place] artery [place] vs. transplanted heart: [place] heart Associated angina: without angina Qualified Code(s): I25.10 - Atherosclerotic heart disease of [place] coronary artery without angina pectoris Hospital course: Mr. Smith is a 67 year old male with prior medical history of coronary artery disease status post angioplasty 2 years ago, tobacco abuse who presented to the emergency room after family noted that he had been complaining of lightheadedness, dizziness, near syncope and feeling warm but was working on his tractor for a couple hours. Parent may be feeling weak and lethargic the last 5 days. On initial presentation, patient appeared volume depleted. Intravenous fluids were started. Workup was initiated for a potential explanation of his presentation. His WBC count was 31,000 as such there was a concern for infection. X-ray ruled out with pneumonia. His urinalysis was suggestive of infection. Although urine cultures were sent, these were polymicrobial and not helpful. He received Levaquin with excellent improvement to white count of 11,400 today. Due to his fluids have been stopped. There is some non-anion gap metabolic acidosis from saline but they should improve. His blood cultures were negative. He was advised to follow with her primary care doctor after discharge. This concern for prostatitis in this 67-year-old male. He will extend the antibiotic course to 4 weeks or until he sees his primary care provider. A CTA chest obtained on admission showed emphysema. Pulmonary function testing should be pursued outpatient. He was recommended to stop smoking. Nicotine patches were provided. Discharge discussed with: patient - Time Spent with Patient Total time spent providing and/or coordinating discharge services: Greater than 30 minutes - Discharge Medications Prescriptions: Aspirin Enteric Coated [Aspirin EC] 81 mg PO DAILY #30 tablet. Atorvastatin Calcium 80 mg PO HS #30 tablet levoFLOXacin [Levaquin] 500 mg PO DAILY #26 tablet Nicotine Patch [Nicoderm] 21 mg TD DAILY #30 patch.td24 Home Medications: Aspirin Enteric Coated [Aspirin EC] 81 mg PO DAILY #30 tablet. 01/23/18 [Rx] Atorvastatin Calcium 80 mg PO HS #30 tablet 01/23/18 [Rx] Nicotine Patch [Nicoderm] 21 mg TD DAILY #30 patch.td24 01/23/18 [Rx] levoFLOXacin [Levaquin] 500 mg PO DAILY #26 tablet 01/23/18 [Rx] Allergies/Adverse Reactions: 3 Allergy/AdvReac Type Severity Reaction Status Date / Time No Known Allergies Allergy Verified 01/19/18 18:01 Date of admission: 01/22/18 18:44 Primary care physician: PCP NONE Discharging clinician: Sohail Allison Anticipated date of discharge: 01/23/18 - Constitutional Vitals: Temp Pulse Resp BP Pulse Ox 98.2 F 77 16 139/87 98 01/23/18 11:57 01/23/18 11:57 01/23/18 11:57 01/23/18 11:57 01/23/18 11:57 Exam: Physical exam Gen: Comfortable, laying in bed, in no visible distress HEENT: Normocephalic, atraumatic. No conjunctival icterus. Moist oral mucosa. Neck: Supple Lungs: Clear to auscultation, no foreign sounds diminished Heart: Normal S1-S2, no murmurs rubs or gallops Abdomen: Normoactive bowel sounds, no guarding rigidity or tenderness Extremities: No edema clubbing or cyanosis Neuro: Alert oriented 3, no focal deficits Skin: No skin lesions - Patient Status Disposition: Home, Self-Care Functional capacity at discharge: independent ambulation Overall status at discharge: patient is back to baseline - Discharge Instructions Follow Up With: NONE,PCP [Primary Care Provider] - Additional Instructions: Contact number for primary care providers in the area have been provided. Please see a doctor within 4 weeks - Diet and Activity Activity: resume usual activities as tolerated Diet: advance to your usual diet
--- NOTE | 2018-01-23 13:00 | Infectious Disease Progress No ---
Date of Encounter: 01/23/18 Time of Encounter: 12:58 - Assessment and Plan (1) Sepsis Status: Acute The patient had two SIRS criteria on admission. Source unclear, but likely : UTI vs. prostatitis. Improved. WBC down to 11.4 this morning. Tachycardia has resolved. Blood cultures drawn 01/22/18 are pending x 2 sets. Qualifiers: Sepsis type: sepsis due to unspecified organism Qualified Code(s): A41.9 - Sepsis, unspecified organism (2) UTI (urinary tract infection) Status: Acute Causative organism unclear. Initial UA positive for pyuria, but appeared contaminated, but culture interpreted as grossly mixed sulaiman. Repeat urine culture pending. ESR and CRP mildly elevated. PSA 47.53. Per the notes, prostate exam benign, but PSA elevated at 47 raising index of suspicion for prostatitis. Clinically improved. Continue Levaquin 500mg PO daily for now. Await repeat urine culture. Duration of treatment depends on the clinical picture. Likely 6 weeks of PO antibiotics for acute bacterial prostatitis. Monitor renal function and dose-adjust antibiotics. Qualifiers: Urinary tract infection type: site unspecified Hematuria presence: without hematuria Qualified Code(s): N39.0 - Urinary tract infection, site not specified (3) Heatstroke Status: Resolved IV fluid resuscitation per the primary team. Resolved. Qualifiers: Encounter type: subsequent encounter Qualified Code(s): T67.0XXD - Heatstroke and sunstroke, subsequent encounter (4) Back pain Status: Acute CT L-spine negative. Appears improved. Management per the primary team. Qualifiers: Back pain location: low back pain Chronicity: acute Back pain laterality : bilateral Sciatica presence: without sciatica Qualified Code(s): M54.5 - Low back pain (5) Tick bite of deltoid region Status: Acute Tick bite sustained about 3 weeks ago in right shoulder. He is not exhibiting systemic signs of tick-borne illness - absence of leukopenia, thombocytopenia. Lesion does not appear to be suspicious for erythema migrans. Does not warrant further workup at this time. Unlikely related to leukocytosis. Qualifiers: Encounter type: initial encounter Laterality: right Qualified Code(s): S40.261A - Insect bite (nonvenomous) of right shoulder, initial encounter; W57.XXXA - Bitten or stung by nonvenomous insect and other nonvenomous arthropods, initial encounter (6) Emphysema lung Status: Chronic Qualifiers: Emphysema type: unspecified Qualified Code(s): J43.9 - Emphysema, unspecified (7) HLD (hyperlipidemia) Status: Acute Qualifiers: Hyperlipidemia type: unspecified Qualified Code(s): E78.5 - Hyperlipidemia , unspecified (8) Tobacco dependence Status: Chronic - Subjective Interval history: Patient seen and examined. No acute events noted overnight. Patient states that overall he feels better today. Denies fevers, chills, or rigors. Denies chest pain, shortness of breath, or cough. Denies nausea, vomiting, or diarrhea today. Denies urinary symptoms, perineal pain, or rectal pain. Denies abdominal pain and states his appetite is better. Denies oral thrush or skin lesions. Denies joint or back pain today. Infect Dis PN-Objective Data - Labs CBC & Chem 7: 01/23/18 08:28 01/23/18 08:28 Labs: Laboratory Results - last 24 hr 01/23/18 01/23/18 08:28 08:28 WBC 11.4 H D RBC 4.38 Hgb 13.8 Hct 37.9 MCV 86.5 MCH 31.5 MCHC 36.4 H RDW 13.7 Plt Count 268 MPV 9.3 L Immature Gran % 0.3 Seg Neutrophils % 65.7 Lymphocytes % 23.5 Monocytes % 7.9 Eosinophils % 1.9 Basophils % 0.7 Neutrophils # 7.5 Lymphocytes # 2.7 Monocytes # 0.9 Eosinophils # 0.2 Basophils # 0.1 Sodium 138 Potassium 3.6 Chloride 111 H Carbon Dioxide 18 L BUN 10 Creatinine 0.65 L Est GFR ( Amer) > 60 Est GFR (Non-Af Amer) > 60 BUN/Creatinine Ratio 15 Glucose 101 Calculated Osmolality 285 Calcium 8.7 Exam - Constitutional Vitals: Temp Pulse Resp BP Pulse Ox 98.2 F 77 16 139/87 98 01/23/18 11:57 01/23/18 11:57 01/23/18 11:57 01/23/18 11:57 01/23/18 11:57 General appearance: average body habitus, cooperative, no acute distress - Head Head exam: Present: atraumatic, normal inspection, normocephalic - Eye Eye exam: Present: EOMI, normal appearance, PERRL Pupils: Present: normal accommodation - ENT ENT exam: Present: mucous membranes moist - Neck Neck exam: Present: normal inspection - Respiratory Respiratory exam: Present: CTAB. Absent: rales, respiratory distress, rhonchi, wheezes - Cardiovascular Cardiovascular exam: Present: RRR, +S1, +S2 - GI/Abdominal GI/Abdominal exam: Present: normal bowel sounds, soft. Absent: distended, tenderness - Extremities Exam Extremities exam: Present: normal inspection. Absent: joint swelling, pedal edema, tenderness - Back Exam Back exam: Present: normal inspection. Absent: CVA tenderness (L), CVA tenderness (R) - Neurological Exam Neurological exam: Present: alert, oriented X3, no focal deficits - Psychiatric Psychiatric exam: Present: normal affect, normal mood - Skin Skin exam: Present: dry, intact, normal color, warm Consult Discharge Plan - Plan Instructions: Aspirin (By mouth), Nicotine (Absorbed through the skin), Atorvastatin (By mouth), Levofloxacin (By mouth), Leukocytosis (DC) Additional Instructions: Contact number for primary care providers in the area have been provided. Please see a doctor within 4 weeks Referrals: NONE,PCP [Primary Care Provider] - (Please call [phone] to find a primary care physician.) Prescriptions: Aspirin Enteric Coated [Aspirin EC] 81 mg PO DAILY #30 tablet. Atorvastatin Calcium 80 mg PO HS #30 tablet levoFLOXacin [Levaquin] 500 mg PO DAILY #26 tablet Nicotine Patch [Nicoderm] 21 mg TD DAILY #30 patch.td24 - Attending Attestation I examined this patient and my medical decision-making was reviewed with the Resident Physician. I agree with the documented findings, disposition and treatment plan as described except to the extent set forth below.
== END 2018-01-23 15:59 | disposition home or self-care (01) | DRG 872 ==
LOC: EMEROO 15:52 → 3BNU 15:52
PROVIDERS: ADMIT Internal Medicine; ATTEND Internal Medicine

== ENCOUNTER 2018-02-02 23:55 | Inpatient (IN) ==
[2018-02-03] MEDS ORDERED: Isovue-370 500 ML INFUS..BTL IV ONE (00:11)
[2018-02-03] MEDS: Ondansetron 4 MG/2 ML VIAL IVP ONE ×2 (00:17→00:31)
--- NOTE | 2018-02-03 00:21 | Emergency Department Note ---
Disposition Clinical Impression: Chest pain, Syncope Disposition: Admitted As Inpatient Condition: Fair General Adult HPI - General Chief complaint: ED Chest Pain Stated complaint: chest pain Time Seen by Provider: 02/02/18 23:55 Source: patient, family Nursing Notes Reviewed: Yes Vital Signs Reviewed: Yes - History of Present Illness Pain Scale: 10 - Related Data Previous Rx's Medication Instructions Recorded Aspirin Enteric Coated [Aspirin EC] 81 mg PO DAILY #30 tablet. 01/23/18 Atorvastatin Calcium 80 mg PO HS #30 tablet 01/23/18 Nicotine Patch [Nicoderm] 21 mg TD DAILY #30 patch.td24 01/23/18 levoFLOXacin [Levaquin] 500 mg PO DAILY #26 tablet 01/23/18 Allergies Allergy/AdvReac Type Severity Reaction Status Date / Time No Known Allergies Allergy Verified 01/19/18 18:01 Past Medical History - Past Medical History Medical history: Reports: coronary artery disease, hyperlipidemia, myocardial infarction Psychiatric history: Reports: no psych history - Social History Smoking Status: Current every day smoker Smokeless Tobacco Status: No Alcohol use: Reports: none Drug use: Reports: none Physical Exam - General General appearance: alert Course Vital Signs Temperature 98.1 F 02/02/18 23:56 Pulse Rate 63 02/02/18 23:56 Respiratory Rate 16 02/02/18 23:56 Blood Pressure 124/80 02/02/18 23:56 O2 Sat by Pulse Oximetry 95 02/02/18 23:56 Temperature 98.1 F 02/02/18 23:56 Pulse Rate 73 02/03/18 01:11 Respiratory Rate 16 02/03/18 01:11 Blood Pressure 121/90 02/03/18 01:11 O2 Sat by Pulse Oximetry 98 02/03/18 01:11 Oxygen Delivery Oxygen Delivery Room Air Medical Decision Making - Lab Data Result diagrams: 02/03/18 00:08 02/03/18 00:08 Lab Results 02/03/18 02/03/18 02/03/18 Range/Units 00:08 00:08 00:08 WBC 18.5 H (4.3-11.1) K/mcL RBC 4.57 (4.19-5.50) M/mcL Hgb 13.9 (12.9-16.9) g/dL Hct 41.2 (37.5-50.1) % MCV 90.2 (83.0-100.0) fL MCH 30.4 (28.0-33.3) pg MCHC 33.7 (31.6-35.5) g/dL RDW 14.6 H (11.5-14.5) % Plt Count 431 H (140-400) K/mcL MPV 8.8 L (9.4-12.4) fL Immature Gran % 0.4 (0-4) % Seg Neutrophils % 47.5 % Lymphocytes % 41.8 % Monocytes % 4.8 % Eosinophils % 4.4 % Basophils % 1.1 % Neutrophils # 8.8 (1.6-8.9) K/mcL Lymphocytes # 7.7 H (0.6-4.6) K/mcL Monocytes # 0.9 (0.0-1.3) K/mcL Eosinophils # 0.8 H (0.0-0.6) K/mcL Basophils # 0.2 (0.0-0.2) K/mcL Reactive Lymphocytes Present A (Not Present) Platelet Estimate Increased H (Normal) PT 10.9 (9.4-12.1) Seconds INR 1.0 APTT 29.7 (26.0-36.0) Seconds Sodium (136-145) mEq/L Potassium (3.5-5.1) mEq/L Chloride (98-107) mEq/L Carbon Dioxide (23-29) mEq/L BUN (8-23) mg/dL Creatinine (0.70-1.30) mg/dL Est GFR ( Amer) (> 60) Est GFR (Non-Af Amer) (> 60) BUN/Creatinine Ratio (6-26) Glucose (70-105) mg/dL Calculated Osmolality (280-300) Calcium (8.6-10.3) mg/dL Troponin I (< 0.04) ng/mL Lipase 56 (11-82) Units/L 02/03/18 Range/Units 00:08 WBC (4.3-11.1) K/mcL RBC (4.19-5.50) M/mcL Hgb (12.9-16.9) g/dL Hct (37.5-50.1) % MCV (83.0-100.0) fL MCH (28.0-33.3) pg MCHC (31.6-35.5) g/dL RDW (11.5-14.5) % Plt Count (140-400) K/mcL MPV (9.4-12.4) fL Immature Gran % (0-4) % Seg Neutrophils % % Lymphocytes % % Monocytes % % Eosinophils % % Basophils % % Neutrophils # (1.6-8.9) K/mcL Lymphocytes # (0.6-4.6) K/mcL Monocytes # (0.0-1.3) K/mcL Eosinophils # (0.0-0.6) K/mcL Basophils # (0.0-0.2) K/mcL Reactive Lymphocytes (Not Present) Platelet Estimate (Normal) PT (9.4-12.1) Seconds INR APTT (26.0-36.0) Seconds Sodium 138 (136-145) mEq/L Potassium 4.1 (3.5-5.1) mEq/L Chloride 108 H (98-107) mEq/L Carbon Dioxide 20 L (23-29) mEq/L BUN 22 (8-23) mg/dL Creatinine 0.91 (0.70-1.30) mg/dL Est GFR ( Amer) > 60 (> 60) Est GFR (Non-Af Amer) > 60 (> 60) BUN/Creatinine Ratio 24 (6-26) Glucose 138 H (70-105) mg/dL Calculated Osmolality 292 (280-300) Calcium 9.6 (8.6-10.3) mg/dL Troponin I < 0.03 (< 0.04) ng/mL Lipase (11-82) Units/L Attestation Statement - Attestation Attestation: I, Kenyon Palacios MD, personally evaluated this patient and discussed their management with the resident physician. I reviewed the resident's note and agree with the documented findings, medical decision making, and plan of care. 67-year-old male presents to the emergency department with a complaint of acute onset of severe sharp chest pain which started in the epigastric region and then radiated up into the substernal region. This occurred less than one hour prior to arrival. Patient had a syncopal episode with the chest pain. Daughter reports that she helped get him up out of the floor and elevated his feet and he was hypotensive but his blood pressure improved. She finally convinced him to come to the hospital and she reports that in route to the hospital he had another syncopal episode and was unresponsive in the car for about 60 seconds. Patient does admit to diaphoresis with the episode. He is unsure if he had shortness of breath. No radiation to the neck or jaw or back. No radiation down the arms. She then also developed nausea and recurrent episodes of vomiting. On arrival here he denies any chest pain but continues to have nausea. On examination patient is a well-developed thin elderly male in no acute distress. He is alert and oriented 3. There is no cyanosis or diaphoresis. Breath sounds are decreased but equal bilaterally with no rales or wheezes noted. Heart regular rate and rhythm. Abdomen is soft and nontender with normal bowel sounds. No pedal edema. EKG shows a normal sinus rhythm with ventricular rate is 63. Old septal AK. Minimal ST elevation in V3 through V5 but does not meet STEMI criteria at this time. Labs reviewed. Troponin normal. Repeat EKG shows improvement in the minimal ST elevations. CTA of the chest abdomen pelvis showed no aneurysm or aortic dissection. Nonobstructing renal calculus. No acute abnormality. The hospitalist, Dr. Guzman, was consulted and accepted admission of the patient.
[2018-02-03 00:27] LABS: Basophils # 0.2 K/mcL (0.0-0.2); Basophils % 1.1 %; Eosinophils # 0.8 K/mcL (0.0-0.6); Eosinophils % 4.4 %; Hematocrit 41.2 % (37.5-50.1); Hemoglobin 13.9 g/dL (12.9-16.9); Immature Granulocytes % 0.4 % (0-4); Lymphocytes # 7.7 K/mcL (0.6-4.6); Lymphocytes % 41.8 %; Mean Corpuscular HGB Conc 33.7 g/dL (31.6-35.5); Mean Corpuscular Hemoglobin 30.4 pg (28.0-33.3); Mean Corpuscular Volume 90.2 fL (83.0-100.0); Mean Platelet Volume 8.8 fL (9.4-12.4); Monocytes # 0.9 K/mcL (0.0-1.3); Monocytes % 4.8 %; Neutrophils # 8.8 K/mcL (1.6-8.9); Platelet Count 431 K/mcL (140-400); Red Blood Count 4.57 M/mcL (4.19-5.50); Red Cell Distribution Width 14.6 % (11.5-14.5); Segmented Neutrophils % 47.5 %
[2018-02-03 00:34] LABS: Prothrombin Time 10.9 Seconds (9.4-12.1)
[2018-02-03 00:37] LABS: Activated Partial Thrombo Time 29.7 Seconds (26.0-36.0)
[2018-02-03 00:40] LABS: BUN/Creatinine Ratio 24 (6-26); Blood Urea Nitrogen 22 mg/dL (8-23); Calcium 9.6 mg/dL (8.6-10.3); Carbon Dioxide 20 mEq/L (23-29); Chloride 108 mEq/L (98-107); Glucose 138 mg/dL (70-105); Osmolality,Calculated 292 (280-300); Potassium 4.1 mEq/L (3.5-5.1); Sodium 138 mEq/L (136-145); eGFR For African Americans > 60 (> 60); eGFR For Non-African Americans > 60 (> 60)
[2018-02-03 00:41] LABS: Troponin I < 0.03 ng/mL (< 0.04)
[2018-02-03 00:49] LABS: Platelet Estimate Increased (Normal); Reactive Lymphocytes Present (Not Present)
[2018-02-03] MEDS ORDERED: 0.9 % Sodium Chloride 1,000 ML IVC ONE (00:59)
--- NOTE | 2018-02-03 01:18 | Emergency Department Note ---
Disposition Clinical Impression: Chest pain Qualifiers: Chest pain type: unspecified Qualified Code(s): R07.9 - Chest pain, unspecified Syncope Qualifiers: Syncope type: unspecified Qualified Code(s): R55 - Syncope and collapse Disposition: Admitted As Inpatient Condition: Fair Referrals: NONE,PCP [Non-Partnered Physician] - Forms: ED Satisfaction Letter Time of Disposition: 01:50 Chest Pain HPI - General Chief Complaint: ED Chest Pain Stated Complaint: chest pain Time Seen by Provider: 02/02/18 23:57 Source: patient, family Mode of arrival: ambulatory Limitations: no limitations Vital Signs Reviewed: Yes Nursing Notes Reviewed: Yes - History of Present Illness HPI Narrative: Patient is a 67-year-old male who presents to [facility] ED with a chief complaint of chest pain. This started shortly prior to his arrival. He was sitting on the couch and had a sudden sharp pain that went from his epigastric region up into the substernal region. States it is nothing he has ever felt before. Family states he then passed out at home. When his daughter arrived, she took his blood pressure and found it to be low. She then put his feet up in the blood pressure seemed to improve. She then brought him to the hospital. States on route, he had a syncopal episode for about 60 seconds in which they were unable to arouse him. Upon arrival to the emergency department, patient is actively nauseated and vomiting. Past medical history significant for CAD with one prior stent done several years ago. Patient admits to being a smoker. No other illicit drug use. Pt complaint: chest pain Onset (ago): minute(s) Duration: now resolved Onset: during rest Pain Location: substernal Severity: severe Severity scale (1-10): 10 Quality: sharp Pain Radiation: none Improves with: nothing Worsens with: nothing Associated symptoms: Reports: nausea, vomiting, syncope. Denies: diaphoresis, dyspnea, fever, cough Treatments prior to arrival chest pain: none - Related Data Previous Rx's Medication Instructions Recorded Aspirin Enteric Coated [Aspirin EC] 81 mg PO DAILY #30 tablet. 01/23/18 Atorvastatin Calcium 80 mg PO HS #30 tablet 01/23/18 Nicotine Patch [Nicoderm] 21 mg TD DAILY #30 patch.td24 01/23/18 levoFLOXacin [Levaquin] 500 mg PO DAILY #26 tablet 01/23/18 Allergies Allergy/AdvReac Type Severity Reaction Status Date / Time No Known Allergies Allergy Verified 01/19/18 18:01 All systems ED: reviewed and negative except as stated. Chest Pain PMH - Past Medical History Medical history: Reports: coronary artery disease, hyperlipidemia, myocardial infarction Psychiatric history: Reports: no psych history - Social History Smoking Status: Current every day smoker Alcohol use: Reports: none Drug use: Reports: none Physical Exam - General Limitations: no limitations General appearance: alert - Head Head exam: atraumatic, normocephalic, normal inspection - Eye Eye exam: Present: normal appearance, EOMI - ENT ENT exam: normal exam, normal oropharynx, mucous membranes moist - Neck Neck exam: Present: normal inspection, full ROM, trachea midline - Chest Chest inspection: Present: normal inspection, symmetric chest wall rise - Respiratory Respiratory exam: Present: normal lung sounds bilaterally - Cardiovascular Cardiovascular exam: Present: regular rate, normal rhythm, normal heart sounds - Abdominal Exam Abdominal exam: Present: soft, Non-Tender. Absent: tenderness, distention, guarding, rebound, rigidity - Extremities Exam Extremities exam: Present: normal inspection, full ROM. Absent: tenderness, pedal edema - Back Exam Back exam: Present: normal inspection, full ROM. Absent: tenderness - Neurological Exam Neurological exam: Present: alert, oriented X3 - Psychiatric Psychiatric exam: Present: normal affect, normal mood - Skin Skin exam: Present: warm, dry, intact, normal color Course Course Narrative: Patient seen and examined. Episode of chest pain followed by syncope and then nausea and vomiting. I did have immediate concern for possible aortic dissection. Bedside ultrasound did not show any huge aorta. CTA of the chest abdomen and pelvis ordered. Patient's chest pain has resolved that he was still actively nauseated and vomiting. A milligrams of Zofran was ordered. Cardiac workup initiated. 1 L of IV fluids ordered since patient had reported low blood pressures at home. - Reevaluation(s) Reevaluation #1: Upon reevaluation, nurse stated patient refused the Zofran because he started feeling better. He has not had any return of the chest pain. Blood pressure stable at 120/90. We will admit for chest pain/syncopal workup. I discussed with the hospitalist Dr. Guzman who has accepted patient for admission. 324 mg of aspirin ordered. Time: 01:47 Vital Signs Temperature 98.1 F 02/02/18 23:56 Pulse Rate 63 02/02/18 23:56 Respiratory Rate 16 02/02/18 23:56 Blood Pressure 124/80 02/02/18 23:56 O2 Sat by Pulse Oximetry 95 02/02/18 23:56 Temperature 98.1 F 02/02/18 23:56 Pulse Rate 63 02/03/18 00:33 Respiratory Rate 16 02/03/18 00:33 Blood Pressure 95/69 02/03/18 00:33 O2 Sat by Pulse Oximetry 96 02/03/18 00:33 Oxygen Delivery Oxygen Delivery Room Air Chest Pain - Medical Records Medical records reviewed: Yes I reviewed the patient's medical records. - Lab Data Lab results reviewed: Yes I reviewed the patient's lab results. Result diagrams: 02/03/18 00:08 02/03/18 00:08 Lab Results 02/03/18 02/03/18 02/03/18 Range/Units 00:08 00:08 00:08 WBC 18.5 H (4.3-11.1) K/mcL RBC 4.57 (4.19-5.50) M/mcL Hgb 13.9 (12.9-16.9) g/dL Hct 41.2 (37.5-50.1) % MCV 90.2 (83.0-100.0) fL MCH 30.4 (28.0-33.3) pg MCHC 33.7 (31.6-35.5) g/dL RDW 14.6 H (11.5-14.5) % Plt Count 431 H (140-400) K/mcL MPV 8.8 L (9.4-12.4) fL Immature Gran % 0.4 (0-4) % Seg Neutrophils % 47.5 % Lymphocytes % 41.8 % Monocytes % 4.8 % Eosinophils % 4.4 % Basophils % 1.1 % Neutrophils # 8.8 (1.6-8.9) K/mcL Lymphocytes # 7.7 H (0.6-4.6) K/mcL Monocytes # 0.9 (0.0-1.3) K/mcL Eosinophils # 0.8 H (0.0-0.6) K/mcL Basophils # 0.2 (0.0-0.2) K/mcL Reactive Lymphocytes Present A (Not Present) Platelet Estimate Increased H (Normal) PT 10.9 (9.4-12.1) Seconds INR 1.0 APTT 29.7 (26.0-36.0) Seconds Sodium (136-145) mEq/L Potassium (3.5-5.1) mEq/L Chloride (98-107) mEq/L Carbon Dioxide (23-29) mEq/L BUN (8-23) mg/dL Creatinine (0.70-1.30) mg/dL Est GFR ( Amer) (> 60) Est GFR (Non-Af Amer) (> 60) BUN/Creatinine Ratio (6-26) Glucose (70-105) mg/dL Calculated Osmolality (280-300) Calcium (8.6-10.3) mg/dL Troponin I (< 0.04) ng/mL Lipase 56 (11-82) Units/L 02/03/18 Range/Units 00:08 WBC (4.3-11.1) K/mcL RBC (4.19-5.50) M/mcL Hgb (12.9-16.9) g/dL Hct (37.5-50.1) % MCV (83.0-100.0) fL MCH (28.0-33.3) pg MCHC (31.6-35.5) g/dL RDW (11.5-14.5) % Plt Count (140-400) K/mcL MPV (9.4-12.4) fL Immature Gran % (0-4) % Seg Neutrophils % % Lymphocytes % % Monocytes % % Eosinophils % % Basophils % % Neutrophils # (1.6-8.9) K/mcL Lymphocytes # (0.6-4.6) K/mcL Monocytes # (0.0-1.3) K/mcL Eosinophils # (0.0-0.6) K/mcL Basophils # (0.0-0.2) K/mcL Reactive Lymphocytes (Not Present) Platelet Estimate (Normal) PT (9.4-12.1) Seconds INR APTT (26.0-36.0) Seconds Sodium 138 (136-145) mEq/L Potassium 4.1 (3.5-5.1) mEq/L Chloride 108 H (98-107) mEq/L Carbon Dioxide 20 L (23-29) mEq/L BUN 22 (8-23) mg/dL Creatinine 0.91 (0.70-1.30) mg/dL Est GFR ( Amer) > 60 (> 60) Est GFR (Non-Af Amer) > 60 (> 60) BUN/Creatinine Ratio 24 (6-26) Glucose 138 H (70-105) mg/dL Calculated Osmolality 292 (280-300) Calcium 9.6 (8.6-10.3) mg/dL Troponin I < 0.03 (< 0.04) ng/mL Lipase (11-82) Units/L - Radiology Data Radiology results reviewed: Yes I reviewed the patient's radiology results. Chest CTA 02/03/18 00:11 IMPRESSION: 1. Atherosclerotic disease, including coronary artery disease, without aneurysm or dissection. 2. Emphysema. 3. Nonobstructing left renal calculus. D/ / Ortiz Vazquez MD / Ortiz Vazquez MD Interpreting Provider: Ortiz Vazquez MD Abdomen/Pelvis CTA 02/03/18 00:22 IMPRESSION: 1. Atherosclerotic disease, including coronary artery disease, without aneurysm or dissection. 2. Emphysema. 3. Nonobstructing left renal calculus. D/ / Ortiz Vazquez MD / Ortiz Vazquez MD Interpreting Provider: Ortiz Vazquez MD - EKG Data EKG attestation: Yes I reviewed and interpreted this EKG. EKG results narrative: EKG done at 2359 shows normal sinus rhythm with a rate of [address] elevation noted in the anterior lateral leads. However this is more likely secondary to early repolarization or lead placement. There is no reciprocal changes. We will repeat an EKG. EKG done at 00 46 shows normal sinus rhythm with a rate of [address] elevation throughout without signs of any reciprocal changes noted. Heart Score - Score History: Moderately Suspicious EKG: Non Specific repolarisation Disturbance Age: Greater than 65 Risk Factors: Equal/Greater than 3 risk factor or history of atherosclerotic disease Troponin: Less than normal limit HEART Score Total: 6
[2018-02-03] MEDS ORDERED: Aspirin 325 MG TABLET PO ONE (01:45)
[2018-02-03] MEDS ORDERED: Naloxone 0.4 MG/ML INJ IVP PRN (03:41)
[2018-02-03] MEDS ORDERED: Acetaminophen 325 MG TABLET PO PRN (03:41)
--- NOTE | 2018-02-03 08:07 | Internal Med History&Physical ---
Date of Encounter: 02/03/18 Time of Encounter: 03:05 Internal Medicine - H&P: HPI Admitted From: Home Plans for Post Hospital Care: Home History of present illness: Mr. Smith is a 67 year old male Patient was previously admitted 3 weeks ago and discharged after experiencing near syncope and dehydration. He also was found to have possible urinary tract infection at that time and was discharged on 4 weeks of Levaquin. Patient had not felt well all day, today after walking to the bathroom he "passed out" fell down and hit his head on the floor. His heard the commotion and found him on the floor face down. She was able to sit him up and he woke up and requested one of his nitro meds. He was having chest pain, and thought that it would help. The pain was epigastric in origin, radiating up his sternum. The pain improved, but it was felt that he should be seen at the hospital for further evaluation. With his first heart attack he did not have pain like this. While walking to the car he was uneasy on his feet, and during the drive to the hospital, he had another episode and passed out in the car. His daughter, who is a nurse, was very concerned as she was unable to wake him up. They arrived at the ER after he woke up again. The episode lasted about 1 minute. In the ER EKG did not show significant ST elevations, troponins were negative. He will be admitted for further monitoring. Past Med Surg Social Fam HX - Past Medical History Medical history: COPD, coronary artery disease, hyperlipidemia, myocardial infarction, syncope Psychiatric history: no psych history - Past Surgical History Additional surgical history: cardiac stent x1. bilat inguinal hernia. Rotator Cuff - Social History Smoking Status: Current every day smoker Smokeless Tobacco Status: No Alcohol use: none Drug use: none - Family History Mother Hx Family Endocrine Disorder: Yes (DM) Father Living Status: Internal Medicine - H&P: Meds Aspirin Enteric Coated [Aspirin EC] 81 mg PO DAILY #30 tablet. 01/23/18 [Rx] Nicotine Patch [Nicoderm] 21 mg TD DAILY #30 patch.td24 01/23/18 [Rx] levoFLOXacin [Levaquin] 500 mg PO DAILY #26 tablet 01/23/18 [Rx] Atorvastatin Calcium 80 mg PO DAILY 02/03/18 [History] 3 Allergy/AdvReac Type Severity Reaction Status Date / Time No Known Allergies Allergy Verified 01/19/18 18:01 All Systems PM: A 10-system review of systems was performed and is negative for pertinent findings except as documented above in the HPI. - Constitutional Vitals: Temp Pulse Resp BP Pulse Ox 97.8 F 69 18 107/77 98 02/03/18 07:30 02/03/18 07:30 02/03/18 07:30 02/03/18 07:30 02/03/18 07:30 General appearance: Present: A&O X 3, pleasant Exam: drowsy - Eye Eye exam: Present: EOMI, normal appearance - Respiratory Respiratory exam: Present: CTAB, wheezes. Absent: respiratory distress - Cardiovascular Cardiovascular exam: Present: RRR. Absent: diastolic murmur, systolic murmur - GI/Abdominal GI/Abdominal exam: Present: normal bowel sounds. Absent: firm, tenderness - Extremities Exam Extremities exam: Present: full ROM, warm, radial pulses palpable and symmetrical. Absent: tenderness - Neurological Exam Neurological exam: Present: oriented X3, strengths equal and symetr throughout. Absent: motor sensory deficit, facial droop, speech deficit Internal Med - H&P Results - Labs CBC & Chem 7: 02/03/18 00:08 02/03/18 00:08 Labs: Cardiac Enzymes 02/03/18 Range/Units 06:27 Troponin I < 0.03 (< 0.04) ng/mL - Assessment and plan (1) Chest pain Current Visit: Yes Status: Acute Assessment and plan: Now resolved, troponins not elevated. EKG not significantly changed from previous. Continue to monitor, repeat troponins. Nitro for any further chest pain Repeat EKG if chest pain returns. Qualifiers: Chest pain type: unspecified Qualified Code(s): R07.9 - Chest pain, unspecified (2) Syncope Current Visit: Yes Status: Acute Assessment and plan: Patient had a fall at home, hitting his head on the floor. Has had near-syncope in his past admission thought to be due to dehydration. Work up for syncope including orthostatic blood pressures. EKG does not indicate arrhythmia, but was normal sinus rhythm. Can consider cardiac exercise specialist outpatient. Patient does not appear dehydrated on exam. CT head today as patient hit his head. Orthostatic blood pressures Consider echocardiogram, tilt table, EEG to help find cause Qualifiers: Syncope type: unspecified Qualified Code(s): R55 - Syncope and collapse (3) Emphysema lung Current Visit: No Status: Chronic Assessment and plan: Chronic, patient trying to quit cigarettes. Qualifiers: Emphysema type: unspecified Qualified Code(s): J43.9 - Emphysema, unspecified (4) Tobacco dependence Current Visit: No Status: Chronic Assessment and plan: Encourage to stop smoking. (5) Leukocytosis Current Visit: No Status: Acute Assessment and plan: Patient has elevated WBCs, similar to his previous admit. WBCs returned to normal levels at time of discharge. Vitals are within normal limits with this admission. Continue to monitor for signs of infection. Blood cultures likely not helpful at this point as patient has been on antibiotics. White count could be elevated due to stress response, and patient is also a smoker which can also elevate white blood cell counts. CT chest, abdomen and pelvis does not reveal any signs of infection. Can consider repeating the urinalysis, as patient continues treatment of a UTI from his previous admission. There was a small non- obstructing left renal calculus that could be acting as a nidus for continued infection, though no inflammatory changes were seen on CT. Continue antibiotics Continue to monitor. Qualifiers: Leukocytosis type: unspecified Qualified Code(s): D72.829 - Elevated white blood cell count, unspecified (6) CAD (coronary artery disease) Current Visit: No Status: Chronic Assessment and plan: History of stent placement about 4 years ago. Troponins not currently elevated. Continue to monitor Continue aspirin 81mg daily. Qualifiers: Coronary Disease-Associated Artery/Lesion type: [place] artery [place] vs. transplanted heart: [place] heart Associated angina: without angina Qualified Code(s): I25.10 - Atherosclerotic heart disease of [place] coronary artery without angina pectoris (7) Head injury Current Visit: Yes Status: Acute Assessment and plan: Patient fell and hit his head after a syncope episode. Order CT head to confirm no significant injury Tylenol for pain PRN. Qualifiers: Qualified Code(s): S09.90XA - Unspecified injury of head, initial encounter (8) UTI (urinary tract infection) Current Visit: No Status: Acute Assessment and plan: As from previous admission, patient discharged with 4 weeks of antibiotics. Currently denies dysuria. Continue levaquin 500mg daily PO. Qualifiers: Urinary tract infection type: site unspecified Hematuria presence: without hematuria Qualified Code(s): N39.0 - Urinary tract infection, site not specified (9) DVT prophylaxis Current Visit: Yes Status: Acute Assessment and plan: SCDs. Heparin can be started after Head CT confirms no bleed. - Time Spent With Patient Total time spent is greater than 50% in coordination of care (as documented) at patient's floor/unit and/or counseling patient: Greater than 35 minutes
[2018-02-03 08:52] LABS: Albumin 3.9 g/dL (3.5-5.7); Albumin/Globulin Ratio 1.5 (1.1-2.2); Bilirubin,Direct 0.2 mg/dL (0.0-0.2); Bilirubin,Indirect 0.4 mg/dL (0.0-1.2); Bilirubin,Total 0.6 mg/dL (0.3-1.0); Globulin 2.6 g/dL (2.4-3.5); Total Protein 6.5 g/dL (6.4-8.9)
--- NOTE | 2018-02-03 10:52 | Internal Med Progress Note ---
<Erik Arenas - Last Filed: 02/03/18 11:56> Date of Encounter: 02/03/18 Time of Encounter: 08:30 - Time Spent With Patient Total time spent is greater than 50% in coordination of care (as documented) at patient's floor/unit and/or counseling patient: - Subjective Interval history: Patient seen and examined lying in bed; no acute distress; denies chest pain, shortness of breath, abdominal pain, confusion - Constitutional Vitals: Temp Pulse Resp BP Pulse Ox 97.8 F 69 18 107/77 98 02/03/18 07:30 02/03/18 07:30 02/03/18 07:30 02/03/18 07:30 02/03/18 07:30 General appearance: Present: A&O X 3, pleasant Internal Medicine: Result - Labs CBC & Chem 7: 02/03/18 00:08 02/03/18 00:08 Labs: Cardiac Enzymes 02/03/18 Range/Units 06:27 Troponin I < 0.03 (< 0.04) ng/mL Liver Function 02/03/18 Range/Units 08:19 Total Bilirubin 0.6 (0.3-1.0) mg/dL Direct Bilirubin 0.2 (0.0-0.2) mg/dL AST 19 (13-39) Units/L ALT 21 (7-52) Units/L Alkaline Phosphatase 67 (34-104) Units/L Albumin 3.9 (3.5-5.7) g/dL - ABG Interpretation ABG results: PT/INR, D-dimer PT 10.9 Seconds (9.4-12.1) 02/03/18 00:08 - Impressions Impressions Head CT 02/03/18 07:45 IMPRESSION: 1. No acute intracranial abnormality. 2. Minimal scattered atherosclerosis of the internal carotid arteries bilaterally. D/ / Rudy Holloway MD / Rudy Holloway MD Interpreting Provider: Rudy Holloway MD - VTE Documentation of Mechanical Device: Intermittent pneumatic compression device Consult Discharge Plan - Plan Referrals: NONE,PCP [Primary Care Provider] - <Ariana Johnson - Last Filed: 02/03/18 15:25> Date of Encounter: 02/03/18 - Time Spent With Patient Total time spent is greater than 50% in coordination of care (as documented) at patient's floor/unit and/or counseling patient: - Constitutional Vitals: Temp Pulse Resp BP Pulse Ox 97.9 F 73 18 95/66 98 02/03/18 11:38 02/03/18 11:38 02/03/18 11:38 02/03/18 11:38 02/03/18 11:38 Internal Medicine: Result - Labs CBC & Chem 7: 02/03/18 00:08 02/03/18 00:08 Labs: Cardiac Enzymes 02/03/18 02/03/18 Range/Units 06:27 12:29 Troponin I < 0.03 < 0.03 (< 0.04) ng/mL Liver Function 02/03/18 Range/Units 08:19 Total Bilirubin 0.6 (0.3-1.0) mg/dL Direct Bilirubin 0.2 (0.0-0.2) mg/dL AST 19 (13-39) Units/L ALT 21 (7-52) Units/L Alkaline Phosphatase 67 (34-104) Units/L Albumin 3.9 (3.5-5.7) g/dL - ABG Interpretation ABG results: PT/INR, D-dimer PT 10.9 Seconds (9.4-12.1) 02/03/18 00:08 - Impressions Impressions Head CT 02/03/18 07:45 IMPRESSION: 1. No acute intracranial abnormality. 2. Minimal scattered atherosclerosis of the internal carotid arteries bilaterally. D/ / Rudy Holloway MD / Rudy Holloway MD Interpreting Provider: Rudy Holloway MD Echocardiogram 02/03/18 07:59 Impressions: LVEF 60-65%. Normal LV chamber size, wall thickness and function. Mild left ventricular diastolic dysfunction. Normal right ventricular structure and function. No evidence of pulmonary hypertension. No significant valvular dysfunction. Left Ventricular Wall Motion: Rest Echo Findings All wall segments showed normal motion. Findings: Study Quality * Technically adequate exam. ECG Findings * Normal sinus rhythm. Left Ventricle * LVEF 60-65%. * Normal LV chamber size, wall thickness and function. * Mild left ventricular diastolic dysfunction. Right Ventricle * Normal right ventricular structure and function. Left Atrium * Mildly dilated left atrium. Right Atrium * Mildly dilated right atrium. Aortic Valve * Trileaflet aortic valve with normal function. * No aortic regurgitation. * No aortic stenosis. Mitral Valve * Normal mitral valve structure and function. * No mitral regurgitation. * No mitral stenosis. Tricuspid Valve * Normal tricuspid valve structure and function. * Trace tricuspid regurgitation. * No evidence of pulmonary hypertension. Pulmonic Valve * Normal pulmonic valve structure and function. * No pulmonic regurgitation. Aorta * Normally sized aortic root. Pericardium * The pericardium appears normal. IVC * Normal IVC dimensions and inspiratory collapse. Pulmonary Artery * Normal visualized portions of the main pulmonary artery. - Attending Attestation I examined this patient and my medical decision-making was reviewed with the Resident Physician. I agree with the documented findings, disposition and treatment plan as described except to the extent set forth below.
--- NOTE | 2018-02-03 11:40 | Cardiology Consult Note ---
Date of Encounter: 02/03/18 Time of Encounter: 11:38 Assessment and Plan (1) Chest discomfort Current Visit: Yes Status: Acute (2) Syncope Current Visit: Yes Status: Acute Qualifiers: Syncope type: unspecified Qualified Code(s): R55 - Syncope and collapse (3) CAD in [place] artery Current Visit: Yes Status: Acute [place] CAD, prior RI, prior PCI to the circumflex. Residual moderate CAD involving the LAD and diagonal branch noted. Presents with a sudden episode of lightheadedness and chest discomfort while urinating, followed by a sudden syncopal event. Serial troponins have been negative. ECGs do not demonstrate any acute findings. Patient has not had an ischemic evaluation since his RI. Recommend continue telemetry. Recommend TTE and stress test to further evaluate. Patient ate this morning. Stress test will be performed Monday. Further recommendations to follow. (4) Chest pain Current Visit: Yes Status: Acute Qualifiers: Chest pain type: unspecified Qualified Code(s): R07.9 - Chest pain, unspecified Discussion w patient/family: The assessment and plan as outlined above was discussed with the patient and/or family members who expressed understanding and agreement. All questions were answered. Thank you for involving us in the care of your patient. Please call with any questions. History of Present Illness Consult date: 02/03/18 Requesting physician: Hollis Carreno Consult reason: Chest pain Chief complaint: Chest pain History of present illness: Mr. Smith is a 67 year old male with a history of CAD, prior RI, previous PCI to the circumflex in 2013. Residual moderate CAD involving the LAD and diagonal noted. Presents with complaints of chest discomfort. Patient states he was lightheaded upon walking to the bathroom. While urinating , he noticed significant lightheadedness and a substernal chest discomfort that radiated up into his neck. Patient aware enough to sit down and reports a sudden syncopal event after sitting down. Prior to this event, patient reports he has felt well. No chest pain since admission to the hospital. Troponin measurements have been negative. Patient already ate breakfast this morning prior to my evaluation. Past Med Surg Social Fam HX - Past Medical History Medical history: COPD, coronary artery disease, hyperlipidemia, myocardial infarction, syncope Psychiatric history: no psych history - Past Surgical History Additional surgical history: cardiac stent x1. bilat inguinal hernia. Rotator Cuff - Social History Smoking Status: Current every day smoker Smokeless Tobacco Status: No Alcohol use: none Drug use: none - Family History Mother Hx Family Endocrine Disorder: Yes (DM) Father Living Status: Medications and Allergies Aspirin Enteric Coated [Aspirin EC] 81 mg PO DAILY #30 tablet. 01/23/18 [Rx] Nicotine Patch [Nicoderm] 21 mg TD DAILY #30 patch.td24 01/23/18 [Rx] levoFLOXacin [Levaquin] 500 mg PO DAILY #26 tablet 01/23/18 [Rx] Atorvastatin Calcium 80 mg PO DAILY 02/03/18 [History] 3 Allergy/AdvReac Type Severity Reaction Status Date / Time No Known Allergies Allergy Verified 02/03/18 09:28 All Systems Review: The remainder of the systems were reviewed and are negative - Cardiovascular Cardiovascular: as per HPI, chest pain at rest, lightheadedness Physical Examination General: Conversant, No Apparent Distress HEENT: Atraumatic, Normocephaly, Mucus Membranes Moist Neck: No JVD, Normal carotid pulses Cardiac: Reg Rate and Rhythm, Normal S1 and S2, No Murmur Lungs: Normal Breath Sounds, No Wheeze, Rales, Rhonchi Neuro: Alert and responsive, No focal deficits noted Abdomen: Soft, Non-Tender Skin: No rashes noted on visualized skin Musculoskeletal: No Chest Wall Tenderness Extremities: No Clubbing, No Cyanosis, No Edema Results 02/03/18 00:08 02/03/18 00:08 Lab Results 02/03/18 02/03/18 06:27 08:19 Total Bilirubin 0.6 AST 19 ALT 21 Alkaline Phosphatase 67 Troponin I < 0.03 - Imaging and Cardiology Cardiac cath: report reviewed Consult Discharge Plan - Plan Referrals: NONE,PCP [Primary Care Provider] -
[2018-02-03] MEDS: Nicotine 21 MG PATCH.TD24 TD SCH (12:06)
[2018-02-03 15:53] LABS: Bilirubin,Urine Negative (Negative); Blood,Urine Negative (Negative); Clarity,Urine Clear (Clear); Color,Urine Yellow (Yellow); Glucose,Urine (UA) Normal (Normal); Ketones,Urine Negative (Negative); Leukocyte Esterase,Urine Negative (Negative); Nitrite,Urine Negative (Negative); PH,Urine 7.5 pH Units (5.0-8.0); Protein,Urine Negative (Neg-Trace); Specific Gravity,Urine 1.015 (1.010-1.025); Urobilinogen,Urine Normal (Normal)
[2018-02-03] MEDS: levoFLOXacin 500 MG TABLET PO SCH (20:16)
[2018-02-03] MEDS: *HR* Heparin 5,000 UNIT/ML VIAL SQ SCH ×2 (20:18→20:29)
[2018-02-04 05:11] LABS: Basophils # 0.2 K/mcL (0.0-0.2); Basophils % 1.3 %; Eosinophils # 0.6 K/mcL (0.0-0.6); Hematocrit 39.4 % (37.5-50.1); Hemoglobin 13.5 g/dL (12.9-16.9); Immature Granulocytes % 0.2 % (0-4); Lymphocytes # 4.2 K/mcL (0.6-4.6); Lymphocytes % 36.6 %; Mean Corpuscular HGB Conc 34.3 g/dL (31.6-35.5); Mean Corpuscular Hemoglobin 30.5 pg (28.0-33.3); Mean Corpuscular Volume 89.1 fL (83.0-100.0); Monocytes # 0.8 K/mcL (0.0-1.3); Monocytes % 6.8 %; Neutrophils # 5.7 K/mcL (1.6-8.9); Platelet Count 384 K/mcL (140-400); Red Blood Count 4.42 M/mcL (4.19-5.50); Red Cell Distribution Width 14.6 % (11.5-14.5); Segmented Neutrophils % 50.1 %
[2018-02-04 05:36] LABS: BUN/Creatinine Ratio 17 (6-26); Blood Urea Nitrogen 15 mg/dL (8-23); Calcium 8.9 mg/dL (8.6-10.3); Carbon Dioxide 23 mEq/L (23-29); Chloride 109 mEq/L (98-107); Glucose 91 mg/dL (70-105); Osmolality,Calculated 288 (280-300); Sodium 139 mEq/L (136-145); eGFR For African Americans > 60 (> 60); eGFR For Non-African Americans > 60 (> 60)
[2018-02-04] MEDS: *HR* Heparin 5,000 UNIT/ML VIAL SQ SCH ×3 (06:25→21:17)
[2018-02-04] MEDS: Nicotine 21 MG PATCH.TD24 TD SCH (08:43)
[2018-02-04] MEDS ORDERED: Nicotine 21 MG PATCH.TD24 TD SCH (09:00)
--- NOTE | 2018-02-04 10:21 | Internal Med Progress Note ---
<Erik Arenas - Last Filed: 02/04/18 13:37> Date of Encounter: 02/04/18 Time of Encounter: 08:20 - Assessment and plan (1) Chest pain Current Visit: Yes Status: Acute Assessment and plan: resolved, troponins negative. CTA chest negative. Echo impression: LVEF 60-65%. Normal LV chamber size, wall thickness and function. Mild left ventricular diastolic dysfunction. Normal right ventricular structure and function. No evidence of pulmonary hypertension. No significant valvular dysfunction. Cardiology consulted with history of CAD and prior [place] and prior PCI to circumflex, recommending stress testing. Patient had already eaten breakfast ( TTE planned for Monday). Qualifiers: Chest pain type: unspecified Qualified Code(s): R07.9 - Chest pain, unspecified (2) Syncope Current Visit: Yes Status: Acute Assessment and plan: syncope x 2 with possible fall/hitting head with 1st episode and with associated nausea and vomiting after 2nd episode. CT IMPRESSION: 1. No acute intracranial abnormality. 2. Minimal scattered atherosclerosis of the internal carotid arteries bilaterally. Qualifiers: Syncope type: unspecified Qualified Code(s): R55 - Syncope and collapse (3) Emphysema lung Current Visit: No Status: Chronic Assessment and plan: no acute respiratory distress. Oxygen saturation stable on RA. Qualifiers: Emphysema type: unspecified Qualified Code(s): J43.9 - Emphysema, unspecified (4) Tobacco dependence Current Visit: No Status: Chronic Assessment and plan: cont nicoderm (5) Leukocytosis Current Visit: No Status: Acute Assessment and plan: Improving; WBC 18,500 to 11,400 today. Possibly secondary to recent UTI, was currently on 4 week outpatient treatment. Qualifiers: Leukocytosis type: unspecified Qualified Code(s): D72.829 - Elevated white blood cell count, unspecified (6) UTI (urinary tract infection) Current Visit: No Status: Acute Assessment and plan: discharged on 01/23/18 with 4 week course of levaquin 500mg daily, antibiotic resumed inpatient. UA was negative on admission. Qualifiers: Urinary tract infection type: site unspecified Hematuria presence: without hematuria Qualified Code(s): N39.0 - Urinary tract infection, site not specified (7) DVT prophylaxis Current Visit: Yes Status: Acute Assessment and plan: SQ heparin (8) CAD in [place] artery Current Visit: Yes Status: Acute Assessment and plan: ee complete plan above as patient has not has cardiac workup since previous DE. Continue statin, ASA - Time Spent With Patient Total time spent is greater than 50% in coordination of care (as documented) at patient's floor/unit and/or counseling patient: - Subjective Interval history: Patient seen and examined sitting on bedside eating breakfast; no acute distress ; denies chest pain, shortness of breath, abdominal pain, confusion. Patient still in agreement of plan for stress test tomorrow. - Constitutional Vitals: Temp Pulse Resp BP Pulse Ox 97.6 F 61 16 114/63 98 02/04/18 08:00 02/04/18 08:00 02/04/18 08:00 02/04/18 08:00 02/04/18 08:00 General appearance: Present: cooperative, A&O X 3, pleasant, no acute distress, answers questions appropriately - Head Head exam: Present: atraumatic, normal inspection, normocephalic - Eye Eye exam: Present: EOMI, normal appearance, sclera anicteric - ENT ENT exam: Present: mucous membranes moist - Neck Neck exam general surgery: Present: full ROM, normal inspection, supple - Respiratory Respiratory exam: Present: CTAB. Absent: accessory muscle use, respiratory distress, stridor, wheezes - Cardiovascular Cardiovascular exam: Present: RRR, +S1, +S2. Absent: diastolic murmur, systolic murmur - GI/Abdominal GI/Abdominal exam: Present: soft. Absent: distended, guarding, tenderness - Extremities Exam Extremities exam: Present: normal inspection. Absent: cyanotic, pedal edema, tenderness - Neurological Exam Neurological exam: Present: alert, oriented X3, no focal deficits. Absent: speech deficit - Psychiatric Psychiatric exam: Present: normal affect, normal mood - Skin Skin exam: Present: dry, intact, normal color, warm. Absent: rash Internal Medicine: Result - Labs CBC & Chem 7: 02/04/18 04:06 02/04/18 04:06 Labs: Short CBC 02/04/18 Range/Units 04:06 WBC 11.4 H (4.3-11.1) K/mcL Hgb 13.5 (12.9-16.9) g/dL Hct 39.4 (37.5-50.1) % Plt Count 384 (140-400) K/mcL Neutrophils # 5.7 (1.6-8.9) K/mcL BMP 02/04/18 04:06 Sodium 139 Potassium 4.0 Chloride 109 H Carbon Dioxide 23 BUN 15 Creatinine 0.88 Glucose 91 Calcium 8.9 Cardiac Enzymes 02/03/18 Range/Units 12:29 Troponin I < 0.03 (< 0.04) ng/mL Urine 02/03/18 Range/Units 15:35 Urine Color Yellow (Yellow) Urine Clarity Clear (Clear) Urine pH 7.5 (5.0-8.0) pH Units Ur Specific [place] 1.015 (1.010-1.025) Urine Protein Negative (Neg-Trace) mg/dL Urine Glucose (UA) Normal (Normal) mg/dL - ABG Interpretation ABG results: PT/INR, D-dimer PT 10.9 Seconds (9.4-12.1) 02/03/18 00:08 - Impressions Impressions Echocardiogram 02/03/18 07:59 Impressions: LVEF 60-65%. Normal LV chamber size, wall thickness and function. Mild left ventricular diastolic dysfunction. Normal right ventricular structure and function. No evidence of pulmonary hypertension. No significant valvular dysfunction. Left Ventricular Wall Motion: Rest Echo Findings All wall segments showed normal motion. Findings: Study Quality * Technically adequate exam. ECG Findings * Normal sinus rhythm. Left Ventricle * LVEF 60-65%. * Normal LV chamber size, wall thickness and function. * Mild left ventricular diastolic dysfunction. Right Ventricle * Normal right ventricular structure and function. Left Atrium * Mildly dilated left atrium. Right Atrium * Mildly dilated right atrium. Aortic Valve * Trileaflet aortic valve with normal function. * No aortic regurgitation. * No aortic stenosis. Mitral Valve * Normal mitral valve structure and function. * No mitral regurgitation. * No mitral stenosis. Tricuspid Valve * Normal tricuspid valve structure and function. * Trace tricuspid regurgitation. * No evidence of pulmonary hypertension. Pulmonic Valve * Normal pulmonic valve structure and function. * No pulmonic regurgitation. Aorta * Normally sized aortic root. Pericardium * The pericardium appears normal. IVC * Normal IVC dimensions and inspiratory collapse. Pulmonary Artery * Normal visualized portions of the main pulmonary artery. - VTE Documentation of Mechanical Device: Intermittent pneumatic compression device Consult Discharge Plan - Plan Referrals: NONE,PCP [Primary Care Provider] - <Ariana Johnson - Last Filed: 02/04/18 16:04> Date of Encounter: 02/04/18 - Assessment and plan (1) Emphysema lung Current Visit: No Status: Chronic Qualifiers: Emphysema type: unspecified Qualified Code(s): J43.9 - Emphysema, unspecified (2) Leukocytosis Current Visit: No Status: Acute Qualifiers: Leukocytosis type: unspecified Qualified Code(s): D72.829 - Elevated white blood cell count, unspecified (3) Tobacco dependence Current Visit: No Status: Chronic (4) UTI (urinary tract infection) Current Visit: No Status: Acute Qualifiers: Urinary tract infection type: site unspecified Hematuria presence: without hematuria Qualified Code(s): N39.0 - Urinary tract infection, site not specified (5) Chest pain Current Visit: Yes Status: Acute Qualifiers: Chest pain type: unspecified Qualified Code(s): R07.9 - Chest pain, unspecified (6) DVT prophylaxis Current Visit: Yes Status: Acute (7) Syncope Current Visit: Yes Status: Acute Qualifiers: Syncope type: unspecified Qualified Code(s): R55 - Syncope and collapse (8) CAD in [place] artery Current Visit: Yes Status: Acute - Time Spent With Patient Total time spent is greater than 50% in coordination of care (as documented) at patient's floor/unit and/or counseling patient: - Constitutional Vitals: Temp Pulse Resp BP Pulse Ox 98.1 F 76 18 112/67 97 02/04/18 15:53 02/04/18 15:53 02/04/18 15:53 02/04/18 15:53 02/04/18 15:53 Internal Medicine: Result - Labs CBC & Chem 7: 02/04/18 04:06 02/04/18 04:06 Labs: Short CBC 02/04/18 Range/Units 04:06 WBC 11.4 H (4.3-11.1) K/mcL Hgb 13.5 (12.9-16.9) g/dL Hct 39.4 (37.5-50.1) % Plt Count 384 (140-400) K/mcL Neutrophils # 5.7 (1.6-8.9) K/mcL BMP 02/04/18 04:06 Sodium 139 Potassium 4.0 Chloride 109 H Carbon Dioxide 23 BUN 15 Creatinine 0.88 Glucose 91 Calcium 8.9 - ABG Interpretation ABG results: PT/INR, D-dimer PT 10.9 Seconds (9.4-12.1) 02/03/18 00:08 - Attending Attestation I examined this patient and my medical decision-making was reviewed with the Resident Physician. I agree with the documented findings, disposition and treatment plan as described except to the extent set forth below.
--- NOTE | 2018-02-04 12:10 | Event Note ---
Date of Encounter: 02/04/18 Time of Encounter: 12:09 No new events reported overnight. History of CAD, prior [place], prior PCI. Residual moderate CAD noted on prior LHC. Presents with chest pain and syncope. Plan for exercise nuclear stress test in a.m. Thanks, Manuel Munoz DO, FACC
[2018-02-04] MEDS: levoFLOXacin 500 MG TABLET PO SCH (16:52)
[2018-02-05 04:08] LABS: Basophils # 0.2 K/mcL (0.0-0.2); Basophils % 1.4 %; Eosinophils # 0.6 K/mcL (0.0-0.6); Eosinophils % 5.5 %; Hematocrit 38.2 % (37.5-50.1); Hemoglobin 13.1 g/dL (12.9-16.9); Immature Granulocytes % 0.3 % (0-4); Lymphocytes # 3.8 K/mcL (0.6-4.6); Mean Corpuscular HGB Conc 34.3 g/dL (31.6-35.5); Mean Corpuscular Hemoglobin 30.6 pg (28.0-33.3); Mean Corpuscular Volume 89.3 fL (83.0-100.0); Mean Platelet Volume 8.9 fL (9.4-12.4); Monocytes # 0.9 K/mcL (0.0-1.3); Monocytes % 8.5 %; Neutrophils # 5.6 K/mcL (1.6-8.9); Platelet Count 367 K/mcL (140-400); Red Blood Count 4.28 M/mcL (4.19-5.50); Red Cell Distribution Width 14.6 % (11.5-14.5); Segmented Neutrophils % 50.3 %
[2018-02-05 04:29] LABS: BUN/Creatinine Ratio 24 (6-26); Blood Urea Nitrogen 20 mg/dL (8-23); Calcium 8.7 mg/dL (8.6-10.3); Carbon Dioxide 22 mEq/L (23-29); Chloride 112 mEq/L (98-107); Glucose 98 mg/dL (70-105); Osmolality,Calculated 287 (280-300); Sodium 137 mEq/L (136-145); eGFR For African Americans > 60 (> 60); eGFR For Non-African Americans > 60 (> 60)
[2018-02-05] MEDS: *HR* Heparin 5,000 UNIT/ML VIAL SQ SCH (05:02)
--- NOTE | 2018-02-05 06:59 | Electrocardiograph Report ---
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
[2018-02-05] MEDS: Nicotine 21 MG PATCH.TD24 TD SCH (10:01)
[2018-02-05 11:25] VITALS: BP 132/89
--- NOTE | 2018-02-05 11:27 | Cardiology Progress Note ---
Date of Encounter: 02/05/18 Time of Encounter: 11:25 Assessment and Plan (1) Chest pain Current Visit: Yes Status: Acute No recurrent chest pain since admission. [place] CAD, prior [place], prior PCI to the circumflex in 2013. Residual moderate CAD involving the LAD and diagonal branch noted. Presented with a sudden episode of lightheadedness and chest discomfort while urinating, followed by a sudden syncopal event. Serial troponins negative. ECGs do not demonstrate any acute findings. TTE EF preserved, mild LVDD, no significant valvular dysfunction. Stress test this AM negative for ischemia or infarct. Cardiology signing off. Reconsult PRN. Will coordinate outpt follow-up in 3-4 weeks. Qualifiers: Chest pain type: unspecified Qualified Code(s): R07.9 - Chest pain, unspecified (2) CAD (coronary artery disease) Current Visit: No Status: Chronic [place] CAD, prior MA, prior PCI to the circumflex in 2013. Residual moderate CAD involving the LAD and diagonal branch noted. Add 81mg ASA. Continue Statin. BP Marginal. Will not start BB due to marginal BP. Qualifiers: Coronary Disease-Associated Artery/Lesion type: [place] artery [place] vs. transplanted heart: [place] heart Associated angina: without angina Qualified Code(s): I25.10 - Atherosclerotic heart disease of [place] coronary artery without angina pectoris (3) Syncope Current Visit: Yes Status: Acute Presents with a sudden episode of lightheadedness and chest discomfort while urinating, followed by a sudden syncopal event. TTE EF preserved. No arrhythmias have been noted on telemetry. Stress test negative for ischemia or infarct. Qualifiers: Syncope type: unspecified Qualified Code(s): R55 - Syncope and collapse Discussion w patient/family: The assessment and plan as outlined above was discussed with the patient and/or family members who expressed understanding and agreement. All questions were answered. Thank you for involving us in the care of your patient. Please call with any questions. I will discuss all the above with Dr. Ashraf and make changes as necessary. Subjective Principal diagnosis: Chest pain, syncope Interval history: Pt denies recurrent chest pain. Nuclear stress test this AM negative of ischemia or infarct. TTE EF preserved, mild LVDD, no significant valvular dysfunction. Denies recurrent syncope or lightheadedness. No arrhythmias noted on telemetry. Objective Vital Signs, Last 4 Hours Temp BP 02/05/18 11:23 97.8 F 132/89 Vital Signs Temp Pulse Resp BP Pulse Ox 02/05/18 11:23 97.8 F 132/89 02/05/18 06:37 97.6 F 64 16 100/70 100 02/05/18 03:58 98.4 F 60 18 123/76 98 02/04/18 23:26 98.1 F 86 18 115/71 98 02/04/18 18:55 97.8 F 81 18 111/75 98 02/04/18 15:53 98.1 F 76 18 112/67 97 Intake and Output 02/04/18 02/05/18 02/05/18 23:59 07:59 15:59 Intake Total 480 / 480 0 / 0 Output Total 150 / 150 800 / 800 Balance 330 / 330 -800 / -800 Intake: Oral 480 / 480 0 / 0 Output: Urine 150 / 150 800 / 800 Other: Meal Dinner Percent of Meal Consumed 100% Weight 62.051 kg Patient Weight 02/05/18 23:59 Weight 62.051 kg General: Conversant, No Apparent Distress HEENT: Atraumatic, Normocephaly, Mucus Membranes Moist Neck: No JVD, Normal carotid pulses Cardiac: Reg Rate and Rhythm, Normal S1 and S2, No Murmur Lungs: Other (diminished) Neuro: Alert and responsive, No focal deficits noted Abdomen: Soft, Non-Tender Skin: No rashes noted on visualized skin Musculoskeletal: No Chest Wall Tenderness Extremities: No Clubbing, No Cyanosis, No Edema, Normal Pulses Results 02/05/18 03:42 02/05/18 03:42 Lab Results 02/05/18 02/05/18 03:42 03:42 WBC 11.1 Hgb 13.1 Hct 38.2 Plt Count 367 Sodium 137 Potassium 4.0 Chloride 112 H Carbon Dioxide 22 L BUN 20 Creatinine 0.84 Glucose 98 Calcium 8.7 Short CBC 02/05/18 Range/Units 03:42 WBC 11.1 (4.3-11.1) K/mcL Hgb 13.1 (12.9-16.9) g/dL Hct 38.2 (37.5-50.1) % Plt Count 367 (140-400) K/mcL Neutrophils # 5.6 (1.6-8.9) K/mcL BMP 02/05/18 Range/Units 03:42 Sodium 137 (136-145) mEq/L Potassium 4.0 (3.5-5.1) mEq/L Chloride 112 H (98-107) mEq/L Carbon Dioxide 22 L (23-29) mEq/L BUN 20 (8-23) mg/dL Creatinine 0.84 (0.70-1.30) mg/dL Glucose 98 (70-105) mg/dL Calcium 8.7 (8.6-10.3) mg/dL Active Medications Acetaminophen (Tylenol) 650 mg PO Q6H PRN PRN Reason: Mild Pain/Fever Stop: 08/05/18 03:42 Atorvastatin Calcium (Lipitor) 80 mg PO DAILY [facility] Stop: 08/05/18 11:33 Last Admin: 02/05/18 09:59 Dose: 80 mg Heparin Sodium (Porcine) (Heparin) 5,000 unit SQ Q8HCO MIGUEL A Stop: 08/05/18 17:01 Last Admin: 02/05/18 05:02 Dose: Not Given Levofloxacin (Levaquin) 500 mg PO Q24H MIGUEL A PRN Reason: Protocol Stop: 08/05/18 17:01 Last Admin: 02/04/18 16:52 Dose: 500 mg Naloxone HCl (Narcan) 0.4 mg IVP Q2MIN PRN PRN Reason: SEE COMMENTS Stop: 08/05/18 03:42 Nicotine (Nicoderm) 21 mg TD DAILY MIGUEL A PRN Reason: Protocol Stop: 08/05/18 11:46 Last Admin: 02/05/18 10:01 Dose: 21 mg - Imaging and Cardiology Stress Test: report reviewed Echo: report reviewed - EKG Interpretation EKG results cardiology: other (12 hr tele AVG HR 70, SR, no significant pauses or arrhythmias) - VTE Documentation of Mechanical Device: Intermittent pneumatic compression device Consult Discharge Plan - Plan Referrals: NONE,PCP [Primary Care Provider] -
[2018-02-05] MEDS ORDERED: Aspirin 81 MG TAB.CHEW PO SCH (11:45)
--- NOTE | 2018-02-05 11:55 | Discharge Summary ---
Orders not resulted at time of discharge: Pending orders 02/03/18 08:19 Culture,Blood [BC] Stat 02/05/18 08:00 NM rosy perf SPECT multi [NM] Routine 02/06/18 04:00 BMP [Basic Metabolic Panel] AM 0400 Complete Blood Count [HEME] AM 0400 Date of Encounter: 02/05/18 Time of Encounter: 08:45 - Discharge Diagnosis (1) Chest pain Status: Acute Qualifiers: Chest pain type: unspecified Qualified Code(s): R07.9 - Chest pain, unspecified (2) CAD in [place] artery Status: Acute (3) Syncope Status: Acute Qualifiers: Syncope type: unspecified Qualified Code(s): R55 - Syncope and collapse (4) Emphysema lung Status: Chronic Qualifiers: Emphysema type: unspecified Qualified Code(s): J43.9 - Emphysema, unspecified (5) Tobacco dependence Status: Chronic (6) Leukocytosis Status: Acute Qualifiers: Leukocytosis type: unspecified Qualified Code(s): D72.829 - Elevated white blood cell count, unspecified (7) UTI (urinary tract infection) Status: Acute Qualifiers: Urinary tract infection type: site unspecified Hematuria presence: without hematuria Qualified Code(s): N39.0 - Urinary tract infection, site not specified (8) DVT prophylaxis Status: Acute Hospital course: Mr. Smith is a 67 year old male - Time Spent with Patient Total time spent providing and/or coordinating discharge services: - Discharge Medications Home Medications: Aspirin Enteric Coated [Aspirin EC] 81 mg PO DAILY #30 tablet. 01/23/18 [Rx] Nicotine Patch [Nicoderm] 21 mg TD DAILY #30 patch.td24 01/23/18 [Rx] levoFLOXacin [Levaquin] 500 mg PO DAILY #26 tablet 01/23/18 [Rx] Atorvastatin Calcium 80 mg PO DAILY 02/03/18 [History] Allergies/Adverse Reactions: 3 Allergy/AdvReac Type Severity Reaction Status Date / Time No Known Allergies Allergy Verified 02/03/18 09:28 Date of admission: 02/03/18 03:41 Primary care physician: PCP NONE Consults: 02/03/18 08:51 Consult to Cardiology [CONS] Routine Comment: Consulting Provider: Cardiology [place] Reason for Consult: Chest pain, reported ST elevations in ED Call Completed: Yes - Constitutional Vitals: Temp Pulse Resp BP Pulse Ox 97.8 F 64 16 132/89 100 02/05/18 11:23 02/05/18 06:37 02/05/18 06:37 02/05/18 11:23 02/05/18 06:37 General appearance: Present: cooperative, A&O X 3, pleasant, no acute distress, answers questions appropriately - Patient Status Condition: Fair - Discharge Instructions Follow Up With: NONE,PCP [Primary Care Provider] - - VTE Documentation of Mechanical Device: Intermittent pneumatic compression device
--- NOTE | 2018-02-05 12:22 | Discharge Summary ---
- NOTES TO OUTPATIENT PROVIDER Notes to Outpatient Provider: Recheck fluid status patient admits to not keeping up with fluids, likely causing syncopal episodes. May consider Neurology consult if further episodes. He had no syncopal episodes during admissions. Recheck CBC - had Leukocytosis which resolved in hospital. Orders not resulted at time of discharge: Pending orders 02/03/18 08:19 Culture,Blood [BC] Stat 02/05/18 08:00 NM rosy perf SPECT multi [NM] Routine 02/06/18 04:00 BMP [Basic Metabolic Panel] AM 0400 Complete Blood Count [HEME] AM 0400 Date of Encounter: 02/05/18 Time of Encounter: 12:18 - Discharge Diagnosis (1) Chest pain Priority: Primary Status: Acute Qualifiers: Chest pain type: unspecified Qualified Code(s): R07.9 - Chest pain, unspecified (2) Syncope Priority: Secondary Status: Resolved Qualifiers: Syncope type: unspecified Qualified Code(s): R55 - Syncope and collapse (3) Emphysema lung Priority: Secondary Status: Chronic Qualifiers: Emphysema type: unspecified Qualified Code(s): J43.9 - Emphysema, unspecified (4) Leukocytosis Priority: Secondary Status: Resolved Qualifiers: Leukocytosis type: unspecified Qualified Code(s): D72.829 - Elevated white blood cell count, unspecified (5) Tobacco dependence Priority: Secondary Status: Chronic (6) UTI (urinary tract infection) Priority: Secondary Status: Acute Qualifiers: Urinary tract infection type: site unspecified Hematuria presence: without hematuria Qualified Code(s): N39.0 - Urinary tract infection, site not specified (7) DVT prophylaxis Priority: Secondary Status: Acute (8) CAD in [place] artery Priority: Secondary Status: Chronic Hospital course: Mr. Smith is a 67 year old with history of CAD, prior [place] presented for chest pain and syncope. On day of admission he was walking to the bathroom and "passed out" and he hit his head on the floor. He woke up and requested his nitro meds. He had chest pain throughout the day. En route to hospital patient reported he had another syncopal episode. In the ED and ECG was done and did not show any significant ST elevations. He was admitted for further monitoring. Troponin were monitored, cycled, and negative. Patient syncope likely from dehydration and states he has not been keeping up with fluids while he is outside all day. He also had some hypotension seen which corrected with IV fluids. A CTA chest done was negative, a head CT showed no acute abnormalities. An Echocardiogram was unremarkable, had mild LV DD. Cardiology was consulted and patient had a stress test, which came back negative. Based on workup, syncope was likely from dehydration and Cardiology is coordinating an outpatient follow-up in 3-4 weeks. He was discharged home in stable condition. He is to continue Levaquin (had recent admission for dehydration and UTI/Prostatitis seen by ID and is to finish Levaquin) - Time Spent with Patient Total time spent providing and/or coordinating discharge services: - Discharge Medications Home Medications: Aspirin Enteric Coated [Aspirin EC] 81 mg PO DAILY #30 tablet.dr 01/23/18 [Rx] Nicotine Patch [Nicoderm] 21 mg TD DAILY #30 patch.td24 01/23/18 [Rx] levoFLOXacin [Levaquin] 500 mg PO DAILY #26 tablet 01/23/18 [Rx] Atorvastatin Calcium 80 mg PO DAILY 02/03/18 [History] Allergies/Adverse Reactions: 3 Allergy/AdvReac Type Severity Reaction Status Date / Time No Known Allergies Allergy Verified 02/03/18 09:28 Date of admission: 02/03/18 03:41 Primary care physician: PCP NONE Consults: 02/03/18 08:51 Consult to Cardiology [CONS] Routine Comment: Consulting Provider: Cardiology [place] Reason for Consult: Chest pain, reported ST elevations in ED Call Completed: Yes Discharging clinician: Ariana Johnson - Constitutional Vitals: Temp Pulse Resp BP Pulse Ox 97.8 F 64 16 132/89 100 02/05/18 11:23 02/05/18 06:37 02/05/18 06:37 02/05/18 11:23 02/05/18 06:37 General appearance: Present: cooperative, A&O X 3, pleasant, no acute distress, answers questions appropriately - Head Head exam: Present: atraumatic, normocephalic - Eye Eye exam: Present: PERRL, conjuntiva pink, sclera anicteric Pupils: Present: PERRL - Neck Neck exam general surgery: Present: supple, trachea midline. Absent: lymphadenopathy - Respiratory Respiratory exam: Present: CTAB. Absent: accessory muscle use, rales, rhonchi, wheezes - Cardiovascular Cardiovascular exam: Present: RRR, +S1, +S2. Absent: diastolic murmur, gallop, rubs, systolic murmur - GI/Abdominal GI/Abdominal exam: Present: normal bowel sounds, soft, no peritoneal signs. Absent: distended, tenderness - Extremities Exam Extremities exam: Present: warm, radial pulses palpable and symmetrical. Absent : calf tenderness, cyanotic, pedal edema - Neurological Exam Neurological exam: Present: CN II-XII intact, oriented X3, no focal deficits. Absent: pronater drift, facial droop, speech deficit - Skin Skin exam: Present: dry, intact - Patient Status Disposition: Home, Self-Care Condition: Fair Functional capacity at discharge: independent ambulation Overall status at discharge: patient is back to baseline - Discharge Instructions Instructions: Chest Pain (DC) Follow Up With: NONE,PCP [Primary Care Provider] - - Diet and Activity Activity: increase activity as tolerated Diet: advance to your usual diet, low fat, low cholesterol, low salt diet - VTE Documentation of Mechanical Device: Intermittent pneumatic compression device
--- NOTE | 2018-02-06 17:14 | Electrocardiograph Report ---
[address] [place] [address] Test Date: 2018-02-02 Pat Name: Delonte Smith Department: 104 Room: 2NE27 Gender: M [employer] Employee: : 1950 Requested By: Gabriela Guzman Order Number: [id number] Reading MD: Jasmin Rodgers Measurements Intervals [place] Rate: 63 P: 75 [place]: 180 QRS: 90 QRSD: 93 T: 71 QT: 412 QTc: 420 Interpretive Statements SINUS RHYTHM SEPTAL MYOCARDIAL INFARCTION, OF INDETERMINATE AGE Electronically Signed On 02-06-2018 17:12:40 EDT by Jasmin Rodgers
== END 2018-02-05 13:31 | disposition home or self-care (01) | DRG 303 ==
LOC: 3BNU 23:55 → EMEROO 23:55 → 2NENU 02-03 02:30
PROVIDERS: ADMIT Family Medicine; ATTEND Internal Medicine